=== PATIENT | male | born 1955 | race Caucasian/White ===

== ENCOUNTER 2019-10-01 21:38 | Inpatient (IN) | payer OTHER, MEDICARE ==
[2019-10-01 22:33] LABS: ALBUMIN 3.6 g/dL (3.5-5.0); ALKALINE PHOSPHATASE 125 U/L (38-126); ASPARTATE AMINO TRANSFERASE 73 U/L (17-59); BILIRUBIN,DIRECT 0.3 mg/dL (0.0-0.4); BLOOD UREA NITROGEN 28 mg/dL (7-20); CHLORIDE 66 mmol/L (98-107); TOTAL PROTEIN 5.9 g/dL (6.3-8.2)
--- NOTE | 2019-10-01 22:34 | ER Document Report ---
ED Respiratory Problem - General Chief Complaint: Shortness Of Breath Stated Complaint: SHORTNESS OF BREATH Time Seen by Provider: 10/01/19 22:21 Notes: Patient is a 64-year-old male that comes emergency department for chief complaint of worsening difficulty breathing for the past 2 days with shortness of breath, difficulty walking without becoming very short of breath, cough, and swelling of both lower extremities. His leg started to weep fluid today as well. Patient has a history of CHF, COPD, and he is on 3 L nasal cannula at all times. He states he has been compliant with his Lasix, he does continue to smoke. He also has a history of insulin-dependent diabetes. He denies history of MA or stent. He lives at home. TRAVEL OUTSIDE OF THE [place] IN LAST 30 DAYS: No - Related Data Allergies/Adverse Reactions: codeine [Codeine] Allergy (Verified 05/03/15 18:35) Penicillins Allergy (Verified 05/03/15 18:35) Sulfa (Sulfonamide Antibiotics) Allergy (Verified 05/03/15 18:35) Past Medical History - General Information source: Patient - Social History Smoking Status: Current Every Day Smoker Chew tobacco use (# tins/day): No Smoking Education Provided: Yes - <3 min Frequency of alcohol use: former heavy, now none Drug Abuse: None Lives with: Alone Family History: Reviewed & Not Pertinent - Past Medical History Cardiac Medical History: Reports: Hx Congestive Heart Failure, Hx Hypertension Pulmonary Medical History: Reports: Hx COPD Endocrine Medical History: Reports: Hx Diabetes Mellitus Type 2 Psychiatric Medical History: Reports: Hx Depression Past Surgical History: Reports: Hx Orthopedic Surgery - l knee - Immunizations Hx Diphtheria, Pertussis, Tetanus Vaccination: Yes Review of Systems - Review of Systems Constitutional: No symptoms reported EENT: No symptoms reported Cardiovascular: See HPI Respiratory: See HPI Gastrointestinal: No symptoms reported Genitourinary: No symptoms reported Male Genitourinary: No symptoms reported Musculoskeletal: No symptoms reported Skin: No symptoms reported Hematologic/Lymphatic: No symptoms reported Neurological/Psychological: No symptoms reported Physical Exam - Vital signs Vitals: Resp Pulse Ox 22 H 94 10/01/19 22:04 10/01/19 22:04 - Notes Notes: GENERAL: Alert, interacts well. No acute distress. HEAD: Normocephalic, atraumatic. EYES: Pupils equal, round, and reactive to light. Extraocular movements intact. ENT: Oral mucosa very dry, tongue midline. Oropharynx unremarkable. Airway patent. NECK: Full range of motion. Supple. Trachea midline. No lymphadenopathy. LUNGS: Occasional congested cough, Rales present in the lower lung khan especially on the right. Speaks in full sentences. No respiratory distress. HEART: Tachycardia, normal rhythm, no murmur. ABDOMEN: Abdomen soft and nontender but patient has a large ventral hernia below the umbilicus. EXTREMITIES: Moves all 4 extremities spontaneously. 3+ swelling of bilateral lower extremities with weeping fluid bilaterally. Normal distal pulses and sensation. BACK: no cervical, thoracic, lumbar midline tenderness. No saddle anesthesia, normal distal neurovascular exam. Moves all extremities in full range of motion. NEUROLOGICAL: Alert and oriented x3. Normal speech. Cranial nerves II through XII grossly intact. Strength 5/5 in all extremities. PSYCH: Normal affect, normal mood. SKIN: Warm, dry, normal turgor. No rashes or lesions noted. Course - Re-evaluation Re-evalutation: Patient is mildly tachycardic, has soft rales on exam especially on the right, has pitting edema with weeping lower extremity fluid. However he is not in distress, he is talking easily, has no obvious pain or discomfort. CBC shows leukocytosis with elevation of neutrophils but no bandemia. Chest x-r ay with cardiomegaly but no overt acute findings. Chemistry shows hypokalemia at 2.2, magnesium pending, starting on magnesium and potassium supplementation. Glucose is very elevated at approximately 600, anion gap is unremarkable. Troponin indeterminate. BNP in the 900s. Patient will require treatment of glucose and diuresis, however before this can be done patient needs to have potassium supplementation, this is ongoing. Patient also has U waves on EKG. I discussed with Dr. Howell. He does recommend magnesium, potassium supplementation, hospitalization. Discussed with patient. Patient states understanding and agreement. Discussed with Dr. Conner, hospitalist, patient accepted to telemetry full admission. - Vital Signs Vital signs: Temp Pulse Resp BP Pulse Ox 98.6 F 116 H 24 H 152/74 H 91 L 10/01/19 22:08 10/01/19 22:08 10/02/19 01:01 10/02/19 01:01 10/02/19 01:01 - Laboratory Result Diagrams: 10/01/19 22:05 10/01/19 22:05 Laboratory results interpreted by me: 10/01/19 10/01/19 10/01/19 22:05 22:05 22:05 WBC 13.6 H Plt Count 115 L Seg Neuts % (Manual) 93 H Lymphocytes % (Manual) 2 L Abs Neuts (Manual) 12.6 H Abs Lymphs (Manual) 0.3 L VBG pH VBG pCO2 VBG HCO3 Sodium 128.7 L Potassium 2.2 L* Chloride 66 L Carbon Dioxide 53 H* BUN 28 H Glucose 598 H* Calcium 8.0 L AST 73 H ALT 107 H NT-Pro-B Natriuret Pep 954 H Total Protein 5.9 L 10/01/19 23:45 WBC Plt Count Seg Neuts % (Manual) Lymphocytes % (Manual) Abs Neuts (Manual) Abs Lymphs (Manual) VBG pH 7.51 H VBG pCO2 74.4 H* VBG HCO3 58.4 H Sodium Potassium Chloride Carbon Dioxide BUN Glucose Calcium AST ALT NT-Pro-B Natriuret Pep Total Protein - EKG Interpretation by Me Additional EKG results interpreted by me: EKG shows sinus rhythm with occasional extra beats that appear to be PACs, QTC of 488, normal axis. There are U waves present anteriorly. No T wave inversions or ST segment changes in consecutive leads. Discharge - Discharge Clinical Impression: Dyspnea on exertion, Bilateral lower extremity edema, Hypokalemia, Hyperglycemia Condition: Stable Disposition: ADMITTED INPATIENT Admitting Provider: Dalila (Hospitalist) Unit Admitted: Telemetry
[2019-10-01 22:36] LABS: HEMATOCRIT 42.7 % (37.9-51.0); HEMOGLOBIN 14.1 g/dL (13.5-17.0); MEAN CORPUSCULAR HEMOGLOBIN 29.3 pg (27.0-33.4); MEAN CORPUSCULAR VOLUME 89 fl (80-97); PLATELET COUNT 115 10^3/uL (150-450); RED BLOOD COUNT 4.82 10^6/uL (4.35-5.55); RED CELL DISTRIBUTION WIDTH 13.9 % (11.5-14.0); WHITE BLOOD COUNT 13.6 10^3/uL (4.0-10.5)
--- NOTE | 2019-10-01 22:44 | RADIOLOGY REPORT (SQ) ---
AP Portable chest: 10/01/2019 9:42 PM CDT History: 64-year old patient with dyspnea. Comparison: Chest radiograph performed 05/03/2015. Findings: The cardiomediastinal silhouette is enlarged. No pneumothorax is seen. There may be a trace left effusion present. No acute airspace opacities are seen. The lung volumes are low. Impression: No acute airspace opacities are seen. The cardiomediastinal silhouette is enlarged.
[2019-10-01 22:58] LABS: ABSOLUTE LYMPHOCYTES# (MANUAL) 0.3 10^3/uL (0.5-4.7); ABSOLUTE MONOCYTES # (MANUAL) 0.5 10^3/uL (0.1-1.4); BASOPHILS % (MANUAL) 0 % (0-2); EOSINOPHILS % (MANUAL) 1 % (0-6); LYMPHOCYTES % (MANUAL) 2 % (13-45); MONOCYTES % (MANUAL) 4 % (3-13); SEGMENTED NEUTROPHILS % (MAN) 93 % (42-78); TOTAL CELLS COUNTED 100
[2019-10-01 23:00] LABS: OVALOCYTES SLIGHT; PLATELET COMMENT DECREASED; PLATELET LARGE PRESENT
[2019-10-01 23:08] LABS: ANION GAP 10 (5-19)
[2019-10-01 23:11] LABS: CARBON DIOXIDE 53 mmol/L (22-30); GLUCOSE 598 mg/dL (75-110); POTASSIUM 2.2 mmol/L (3.6-5.0)
[2019-10-01] MEDS ORDERED: NITROGLYCERIN 5 MG (0.2 MG/HR) PATCH.TD24 TD ONE (23:11)
[2019-10-01] MEDS: MAGNESIUM SULFATE/D5W 1 GM/100 ML RTUPB IV SCH (23:30)
[2019-10-01] MEDS: POTASSI CL 20 MEQ/50 ML RIDER 20 MEQ/50 ML RTUPB IV SCH (23:56)
[2019-10-02 00:03] LABS: VENOUS BLOOD BASE EXCESS 29.3 mmol/L; VENOUS BLOOD HCO3 58.4 mmol/L (20-32); VENOUS BLOOD PH 7.51 (7.30-7.42)
[2019-10-02 00:08] LABS: VENOUS BLOOD PCO2 74.4 mmHg (35-63)
[2019-10-02] MEDS ORDERED: POTASSIUM CHLORIDE 20 MEQ PACKET PO ONE (00:08)
[2019-10-02] MEDS: MAGNESIUM SULFATE/D5W 1 GM/100 ML RTUPB IV SCH (00:30)
[2019-10-02] MEDS: POTASSI CL 20 MEQ/50 ML RIDER 20 MEQ/50 ML RTUPB IV SCH ×5 (02:09→14:18)
[2019-10-02] MEDS ORDERED: LEVALBUTEROL HCL NEB 0.63 MG/3 ML AMPUL NEB PRN (02:54)
[2019-10-02] MEDS ORDERED: MAGNESIUM HYDROXIDE SUSP 30 ML UDCUP PO PRN (02:54)
[2019-10-02] MEDS ORDERED: MAG HYDROX/AL HYDROX/SIMETH SUSP 30 ML UDCUP PO PRN (02:54)
[2019-10-02] MEDS ORDERED: ONDANSETRON HCL INJ/PF 4 MG/2 ML SDV IV PRN (02:54)
[2019-10-02] MEDS ORDERED: SPIRONOLACTONE 25 MG TABLET PO ONE (03:08)
[2019-10-02] MEDS ORDERED: GLUCAGON,HUMAN RECOMB 1 MG INJ IM PRN (03:10)
[2019-10-02] MEDS ORDERED: DEXTROSE 40% GEL 15 GM TUBE PO PRN ×2 (03:10)
[2019-10-02] MEDS ORDERED: DEXTROSE 50%-WATER 25 GM/50 ML DISP.SYRIN IV PRN ×2 (03:10)
[2019-10-02] MEDS ORDERED: MORPHINE SULFATE 10 MG/ML INJ IV PRN (03:11)
[2019-10-02] MEDS ORDERED: GUAIFENESIN SYRP 200 MG/10 ML UDC PO PRN (03:11)
[2019-10-02] MEDS ORDERED: LORAZEPAM INJ 2 MG/1 ML VIAL IV PRN (03:11)
[2019-10-02] MEDS ORDERED: ACETAMINOPHEN 325 MG TABLET PO PRN (03:11)
[2019-10-02] MEDS ORDERED: HYDRALAZINE HCL INJ/PF 20 MG/1 ML SDV IV PRN (03:11)
[2019-10-02] MEDS ORDERED: NICOTINE 21 MG/24 HR PATCH.TD24 TD PRN (03:11)
[2019-10-02] MEDS: NITROGLYCERIN 2% OINTMENT 1 GM PACKET TP SCH ×4 (04:49→22:34)
[2019-10-02] MEDS: HEPARIN SOD (PORCINE) 5,000 UNIT/ML 1 ML VIAL SUBCUT SCH ×2 (05:33→14:18)
--- NOTE | 2019-10-02 06:24 | PDOC H&P ---
History of Present Illness Admission Date/PCP: 10/02/19 01:[facility] Patient complains of: Dyspnea on exertion History of Present Illness: ERIC DIAZ is a 64 year old male who presented to the emergency room with a one-week history of dyspnea on exertion. He admits a gradual onset and p rogressive development of dyspnea on exertion over the course of the last week, becoming severe for the last 2 days. His exertional dyspnea has been accompanied by increased swelling of his lower extremities and a nonproductive cough. His exertional dyspnea is associated with his inability to use continuous oxygen at home (3 L/min per nasal cannula) due to having exhausted the supply in his oxygen tank 2 days ago. He denies other associated or accompanying signs and symptoms. He admits prior similar episodes due to his CHF and COPD. He has not identified any aggravating or ameliorating factors for his exertional dyspnea. In the emergency room he was found to have a potassium of 2.2 and was noted to have weeping edema of his bilateral lower extremities. He was subsequently admitted to the hospital for further evaluation and treatment. Past Medical History Cardiac Medical History: Reports: Congestive Heart Failure, Hypertension Denies: Atrial Fibrillation, Coronary Artery Disease, DVT, Myocardial Infarction, Hyperlipidema, Pulmonary Embolism Pulmonary Medical History: Reports: Chronic Obstructive Pulmonary Disease (COPD), Respiratory Failure - Chronic, Sleep Apnea Denies: Asthma EENT Medical History: Denies: Cataracts, Ears - Hearing aids Neurological Medical History: Denies: Hemorrhagic CVA, Ischemic CVA, Seizures Endocrine Medical History: Reports: Diabetes Mellitus Type 2, Obesity Denies: Diabetes Mellitus Type 1, Hyperthyroidism, Hypothyroidism Renal/ Medical History: Reports: Chronic Kidney Disease Denies: Nephrolithiasis Malignancy Medical History: Reports: None GI Medical History: Denies: Cirrhosis, Crohn's Disease, Hepatitis, Peptic Ulcer Disease, Ulcerative Colitis Musculoskeltal Medical History: Denies: Arthritis, Gout Skin Medical History: Denies: Eczema, Psoriasis Psychiatric Medical History: Reports: Alcohol Dependency, Depression, Tobacco Dependency Denies: Substance Abuse Traumatic Medical History: Reports: None Hematology: Denies: Anemia, Bleeding Tendencies Infectious Medical History: Reports: None Past Surgical History Past Surgical History: Reports: Knee Replacement, Orthopedic Surgery - Left knee replacement Social History Information Source: Patient Lives with: Alone Smoking Status: Current Every Day Smoker Electronic Cigarette use?: No Frequency of Alcohol Use: None - He was a heavy daily drinker in the remote past Drugs: None Hx Prescription Drug Abuse: No - Advance Directive Resuscitation Status: Full Code Surrogate healthcare decision maker:: Kenyetta John Family History Family History: CAD, DM, Hypertension, Malignancy Parental Family History Reviewed: Yes Children Family History Reviewed: No Sibling(s) Family History Reviewed.: Yes Medication/Allergy Home Medications: Furosemide [Lasix] 20 mg PO DAILY 04/18/15 Metformin HCl [Glucophage 500 mg Tablet] 500 mg PO DAILY 04/18/15 Metoprolol Tartrate [Lopressor] 50 mg PO DAILY 04/18/15 Potassium Chloride 10 meq PO DAILY 04/18/15 Prednisone 60 mg PO DAILY 5 Days tablet 04/18/15 Albuterol Sulfate [Proair HFA Inhalation Aerosol 8.5 gm MDI] 1 puff IH Q4 PRN #1 mdi 05/04/15 Azithromycin [Zithromax 250 mg Tablet] 250 mg PO ASDIR PRN #6 tablet 05/04/15 Methylprednisolone [Medrol Dosepack (4 mg/Tab) 21 Tab/Dosepak] 4 mg PO ASDIR PRN #21 tab.ds.pk 05/04/15 Allergies/Adverse Reactions: codeine [Codeine] Allergy (Verified 05/03/15 18:35) Penicillins Allergy (Verified 05/03/15 18:35) Sulfa (Sulfonamide Antibiotics) Allergy (Verified 05/03/15 18:35) Review of Systems Constitutional: ABSENT: chills, fever(s) Eyes: ABSENT: visual disturbances, other - Eye pain Ears: ABSENT: hearing changes, other - Ear pain Nose, Mouth, and Throat: ABSENT: headache(s), sore throat Cardiovascular: PRESENT: as per HPI, dyspnea on exertion, edema. ABSENT: chest pain, orthropnea, palpitations Respiratory: PRESENT: as per HPI, cough. ABSENT: dyspnea, hemoptysis, sputum Gastrointestinal: ABSENT: abdominal pain, constipation, diarrhea, nausea, vomiting Musculoskeletal: ABSENT: joint swelling, muscle weakness Integumentary: ABSENT: pruritus, rash Neurological: ABSENT: confusion, convulsions, focal weakness, memory loss, syncope Psychiatric: ABSENT: anxiety, depression Endocrine: ABSENT: cold intolerance, heat intolerance Hematologic/Lymphatic: ABSENT: easy bleeding, easy bruising Allergic/Immunologic: ABSENT: seasonal rhinorrhea Physical Exam Vital Signs: Temp Pulse Resp BP Pulse Ox 98.6 F 116 H 24 H 152/74 H 91 L 10/01/19 22:08 10/01/19 22:08 10/02/19 01:01 10/02/19 01:01 10/02/19 01:01 Intake & Output 09/30/19 10/01/19 10/02/19 23:59 23:59 23:59 Intake Total 200 Balance 200 Weight 102.058 kg General appearance: PRESENT: no acute distress, cooperative, obese Head exam: PRESENT: atraumatic, normocephalic Eye exam: PRESENT: conjunctiva pink. ABSENT: conjunctival injection, scleral icterus Ear exam: PRESENT: normal external ear exam. ABSENT: bleeding, drainage Mouth exam: PRESENT: dry mucosa, neck supple Neck exam: ABSENT: JVD, thyromegaly, tracheal deviation Respiratory exam: PRESENT: prolonged expiratory phas - Mildly prolonged expi ratory phase throughout all khan, rales - Fine bibasilar rales, symmetrical, wheezes - Minimal expiratory wheezes noted in all khan Cardiovascular exam: PRESENT: gallop - Faint S4 gallop, RRR. ABSENT: clicks, rubs, systolic murmur Pulses: PRESENT: normal carotid pulses, normal radial pulses Vascular exam: PRESENT: normal capillary refill. ABSENT: pallor GI/Abdominal exam: PRESENT: normal bowel sounds, soft. ABSENT: tenderness Rectal exam: PRESENT: deferred Extremities exam: PRESENT: pedal edema - Bilateral pitting edema feet, other - 3+ pitting edema of the bilateral lower extremities with venous stasis skin changes and multiple "weeping" bullae Musculoskeletal exam: ABSENT: deformity, dislocation Neurological exam: PRESENT: alert, oriented to person, oriented to place, oriented to time, oriented to situation, CN II-XII grossly intact. ABSENT: motor sensory deficit Psychiatric exam: PRESENT: appropriate affect, normal mood Skin exam: PRESENT: dry, intact, warm, other - Venous stasis skin changes of the bilateral lower extremities with weeping bullae as noted above. ABSENT: jaundice, rash, urticaria Results Laboratory Results: 10/01/19 22:05 10/01/19 22:05 10/01/19 10/01/19 10/01/19 22:05 22:05 22:05 WBC 13.6 H RBC 4.82 Hgb 14.1 Hct 42.7 MCV 89 MCH 29.3 MCHC 33.0 RDW 13.9 Plt Count 115 L Seg Neutrophils % Not Reportable VBG pH VBG pCO2 VBG HCO3 VBG Base Excess Sodium 128.7 L Potassium 2.2 L* Chloride 66 L Carbon Dioxide 53 H* Anion Gap 10 BUN 28 H Creatinine 1.11 Est GFR ( Amer) > 60 Glucose 598 H* Calcium 8.0 L Magnesium 1.9 Total Bilirubin 1.0 AST 73 H Alkaline Phosphatase 125 Total Protein 5.9 L Albumin 3.6 10/01/19 23:45 WBC RBC Hgb Hct MCV MCH MCHC RDW Plt Count Seg Neutrophils % VBG pH 7.51 H VBG pCO2 74.4 H* VBG HCO3 58.4 H VBG Base Excess 29.3 Sodium Potassium Chloride Carbon Dioxide Anion Gap BUN Creatinine Est GFR ( Amer) Glucose Calcium Magnesium Total Bilirubin AST Alkaline Phosphatase Total Protein Albumin 10/01/19 10/01/19 22:05 22:05 Troponin I 0.043 NT-Pro-B Natriuret Pep 954 H Assessment and Plan - Diagnosis (1) Acute on chronic respiratory failure with hypoxia and hypercapnia Is this a current diagnosis for this admission?: Yes (2) Hypokalemia Is this a current diagnosis for this admission?: Yes (3) Acute on chronic congestive heart failure Qualifiers: Heart failure type: unspecified Qualified Code(s): I50.9 - Heart failure, unspecified Is this a current diagnosis for this admission?: Yes (4) Diabetes mellitus type 2 in obese Is this a current diagnosis for this admission?: Yes (5) Hypertension Qualifiers: Hypertension type: essential hypertension Qualified Code(s): I10 - Essential (primary) hypertension Is this a current diagnosis for this admission?: Yes (6) Tobacco use disorder, severe, dependence Is this a current diagnosis for this admission?: Yes - Plan Summary Summary: Patient will be admitted to the medical floor on telemetry he received routine supportive and symptomatic cares. Potassium supplementation was initiated in the emergency room and will be continued until his serum potassium has been repleted. Once his potassium level is greater than 3.0 treatment of his hyperglycemia will be initiated using sliding scale insulin and before meals and at bedtime Accu-Cheks with a hypoglycemic protocol also in place. Once his potassium is greater than 3.0 initiation of diuretic therapy with IV Bumex will be undertaken. He will use morphine sulfate 2 to 4 mg IV every 2 hours as ne eded for pain control. He will use Ativan 1 mg IV every 4 hours as needed for anxiety or restlessness. Smoking cessation is advised and counseled briefly at the bedside. A nicotine replacement patch is available for the patient's use, if desired. He will be on a cardiac and diabetic restricted diet. A cardiology consultation with Dr. Miguel will be obtained. The patient's usual home medications will be continued, as appropriate, once his medication list has been verified and reconciled. - Time Time Spent with patient: 15-24 minutes Smoking Cessation Education: 3 to 10 minutes Medications reviewed and adjusted accordingly: Yes Anticipated Discharge Disposition: Home with Home Health Anticipated Discharge Timeframe: within 72 hours - Inpatient Certification Based on my medical assessment, after consideration of the patient's comorbidities, presenting symptoms, or acuity I expect that the services needed warrant INPATIENT care.: Yes I certify that my determination is in accordance with my understanding of Medicare's requirements for reasonable and necessary INPATIENT services [42 CFR 412.3e].: Yes Medical Necessity: Significant Comorbidiites Make Outpatient Treatment Too Risky, Need Close Monitoring Due to Risk of Patient Decompensation, Need For Continuous Telemetry Monitoring, Risk of Complication if Not Cared For in Hospital
--- NOTE | 2019-10-02 06:39 | EKG REPORT ---
SEVERITY:- ABNORMAL ECG - SINUS TACHYCARDIA AND PAC NONSPECIFIC REPOL ABNORMALITY, DIFFUSE LEADS BORDERLINE PROLONGED QT INTERVAL : Confirmed by: Campbell Lopez MD 02-Oct-2019 06:39:00
[2019-10-02 06:42] LABS: HEMATOCRIT 37.4 % (37.9-51.0); HEMOGLOBIN 12.6 g/dL (13.5-17.0); MEAN CORPUSCULAR HEMOGLOBIN 29.4 pg (27.0-33.4); MEAN CORPUSCULAR HGB CONC 33.8 g/dL (32.0-36.0); MEAN CORPUSCULAR VOLUME 87 fl (80-97); RED CELL DISTRIBUTION WIDTH 13.8 % (11.5-14.0); WHITE BLOOD COUNT 8.2 10^3/uL (4.0-10.5)
[2019-10-02 07:11] LABS: BLOOD UREA NITROGEN 25 mg/dL (7-20); CALCIUM 7.5 mg/dL (8.4-10.2); CHLORIDE 72 mmol/L (98-107); CREATINE KINASE 132 U/L (55-170)
[2019-10-02 07:31] LABS: ANION GAP 9 (5-19)
[2019-10-02 07:34] LABS: CARBON DIOXIDE 51 mmol/L (22-30); GLUCOSE 477 mg/dL (75-110); POTASSIUM 2.3 mmol/L (3.6-5.0)
[2019-10-02 07:56] LABS: PLATELET COUNT 72 10^3/uL (150-450)
[2019-10-02] MEDS: LEVALBUTEROL HCL NEB 1.25 MG/3 ML AMPUL NEB SCH ×2 (09:06→15:33)
[2019-10-02] MEDS: BUDESONIDE NEB 0.5 MG/2 ML AMPUL NEB SCH ×2 (09:06→20:16)
[2019-10-02] MEDS: IPRATROPIUM BROMIDE 0.02% NEB 0.5 MG/2.5 ML AMPUL NEB SCH ×2 (09:06→15:33)
[2019-10-02] MEDS: CLOPIDOGREL BISULFATE 75 MG TABLET PO SCH (09:10)
[2019-10-02] MEDS: LOSARTAN POTASSIUM 50 MG TABLET PO SCH (09:10)
[2019-10-02] MEDS: FAMOTIDINE 20 MG TABLET PO SCH ×2 (09:10→22:34)
[2019-10-02] MEDS: METOPROLOL SUCCINATE 50 MG TAB.SR.24H PO SCH (09:10)
[2019-10-02] MEDS: POTASSIUM CHLORIDE 10 MEQ TABLET.ER PO SCH ×3 (09:10→17:18)
[2019-10-02] MEDS: INSULIN REG, HUMAN 100 UNIT/ML 3 ML VIAL (PYX) SUBCUT PRN ×4 (09:11→22:33)
[2019-10-02] MEDS: DOCUSATE SODIUM 100 MG CAPSULE PO SCH ×2 (09:24→17:18)
[2019-10-02] MEDS: POTASSIUM CHLORIDE 20 MEQ/50 ML RTU IV SCH ×2 (11:48→14:18)
[2019-10-02 12:13] LABS: TROPONIN I 0.044 ng/mL
[2019-10-02 13:13] LABS: CREATINE KINASE MB 1.71 ng/mL (<4.55)
[2019-10-02 14:01] LABS: CREATINE KINASE MB 1.57 ng/mL (<4.55); TROPONIN I 0.037 ng/mL
[2019-10-02] MEDS ORDERED: INSULIN GLARGINE,HUM.REC.ANLOG 1,000 UNIT/10 ML VIAL (PYX) SUBCUT ONE (14:15)
--- NOTE | 2019-10-02 14:15 | XCELERA REPORT ---
[address] [address] Transthoracic Echocardiogram Report Name: ERIC DIAZ Age: 64 yrs Gender: Male : 1955 Patient Status: Inpatient Patient Location: [address] [place], [place] [id number] Study Date: 10/02/2019 10:07 AM Height: 71 in Weight: 225 lb BSA: 2.2 m2 Procedure: A complete two-dimensional transthoracic echocardiogram was performed (2D, M-mode, spectral and color flow Doppler). The study was technically good with many images being of high quality. Reason For Study: Acute on chronic CHF Ordering Physician: DINO DOUGLASS Performed By: Taylor Villasenor Interpretation Summary The left ventricle is grossly normal size. There is mild concentric left ventricular hypertrophy. Left ventricular systolic function is normal. The Ejection Fraction estimate is 55-60%. Doppler measurements suggest impaired left ventricular relaxation, which is associated with grade I/IV or mild diastolic dysfunction. Regional wall motion abnormalities cannot be excluded due to limited visualization. Trace TR. No prior studies for comparison. MMode/2D Measurements & Calculations RVDd: 2.5 cm LVIDd: 4.6 cm FS: 29.6 % Ao root diam: 3.0 cm IVSd: 1.4 cm LVIDs: 3.2 cm EDV(Teich): 95.5 ml Ao root area: 7.3 cm2 LVPWd: 1.2 cm ESV(Teich): 41.4 ml EF(Teich): 56.7 % Doppler Measurements & Calculations MV E max mary: MV dec slope: Ao V2 max: LV V1 max P.8 cm/sec 390.7 cm/sec2 113.1 cm/sec 4.5 mmHg MV A max mary: MV dec time: 0.21 secAo max PG: LV V1 max: 108.7 cm/sec 5.1 mmHg 106.5 cm/sec MV E/A: 0.75 PA V2 max: 84.2 cm/sec PA max P.8 mmHg Left Ventricle The left ventricle is grossly normal size. There is mild concentric left ventricular hypertrophy. Left ventricular systolic function is normal. The Ejection Fraction estimate is 55-60%. Doppler measurements suggest impaired left ventricular relaxation, which is associated with grade I/IV or mild diastolic dysfunction. Regional wall motion abnormalities cannot be excluded due to limited visualization. Right Ventricle The right ventricle is normal in size, thickness and function. The right ventricular systolic function is normal. Atria The right atrium is normal. The left atrial size is normal. The interatrial septum is difficult to see, but appears to be grossly normal. Mitral Valve The mitral valve is normal in structure and function. There is no mitral regurgitation noted. Aortic Valve The aortic valve is normal in structure and functions normally. No aortic regurgitation is present. Tricuspid Valve The tricuspid is normal in structure and function. There is a trace or physiologic amount of tricuspid regurgitation. Pulmonic Valve The pulmonic valve is normal in structure and function. There is no pulmonic valvular regurgitation. Great Vessels The inferior vena cava was not well visualized. : DINO DOUGLASS Antonio
--- NOTE | 2019-10-02 14:28 | PDOC CONSULTATION ---
Consultation Consult Date: 10/02/19 Attending physician:: MAXX MONSON Provider Consulted: TIFFANY DARBY Consult reason:: Congestive heart failure History of Present Illness Admission Date/PCP: 10/02/19 01:[facility] Patient complains of: Shortness of breath and edema History of Present Illness: ERIC DIAZ is a 64 year old male Who is not a great historian. He presents with dyspnea and peripheral edema with symptoms suggestive of congestive heart failure. He reports having had similar episodes in the past. Echocardiogram done on this admission shows preserved ejection fraction suggesting a diagnosis of heart failure with preserved ejection fraction. No mention of coronary artery disease. Patient does not report chest pains. Past Medical History Cardiac Medical History: Reports: Congestive Heart Failure, Hypertension Denies: Atrial Fibrillation, Coronary Artery Disease, DVT, Myocardial Infarction, Hyperlipidema, Pulmonary Embolism Pulmonary Medical History: Reports: Chronic Obstructive Pulmonary Disease (COPD), Respiratory Failure - Chronic, Sleep Apnea Denies: Asthma EENT Medical History: Denies: Cataracts, Ears - Hearing aids Neurological Medical History: Denies: Hemorrhagic CVA, Ischemic CVA, Seizures Endocrine Medical History: Reports: Diabetes Mellitus Type 2, Obesity Denies: Diabetes Mellitus Type 1, Hyperthyroidism, Hypothyroidism Renal/ Medical History: Reports: Chronic Kidney Disease Denies: Nephrolithiasis Malignancy Medical History: Reports: None GI Medical History: Denies: Cirrhosis, Crohn's Disease, Hepatitis, Peptic Ulcer Disease, Ulcerative Colitis Musculoskeltal Medical History: Denies: Arthritis, Gout Skin Medical History: Denies: Eczema, Psoriasis Psychiatric Medical History: Reports: Alcohol Dependency, Depression, Tobacco Dependency Denies: Substance Abuse Traumatic Medical History: Reports: None Hematology: Denies: Anemia, Bleeding Tendencies Infectious Medical History: Reports: None Past Surgical History Past Surgical History: Reports: Knee Replacement, Orthopedic Surgery - Left knee replacement Social History Lives with: Alone Smoking Status: Current Every Day Smoker Electronic Cigarette use?: No Frequency of Alcohol Use: None - He was a heavy daily drinker in the remote past Drugs: None Hx Prescription Drug Abuse: No - Advance Directive Resuscitation Status: Full Code Family History Family History: CAD, DM, Hypertension, Malignancy Parental Family History Reviewed: No Children Family History Reviewed: NA Sibling(s) Family History Reviewed.: NA Medication/Allergy Home Medications: Furosemide [Lasix] 20 mg PO DAILY 04/18/15 Metformin HCl [Glucophage 500 mg Tablet] 500 mg PO DAILY 04/18/15 Metoprolol Tartrate [Lopressor] 50 mg PO DAILY 04/18/15 Potassium Chloride 10 meq PO DAILY 04/18/15 Prednisone 60 mg PO DAILY 5 Days tablet 04/18/15 Albuterol Sulfate [Proair HFA Inhalation Aerosol 8.5 gm MDI] 1 puff IH Q4 PRN #1 mdi 05/04/15 Azithromycin [Zithromax 250 mg Tablet] 250 mg PO ASDIR PRN #6 tablet 05/04/15 Methylprednisolone [Medrol Dosepack (4 mg/Tab) 21 Tab/Dosepak] 4 mg PO ASDIR PRN #21 tab.ds.pk 05/04/15 Allergies/Adverse Reactions: codeine [Codeine] Allergy (Verified 05/03/15 18:35) Penicillins Allergy (Verified 05/03/15 18:35) Sulfa (Sulfonamide Antibiotics) Allergy (Verified 05/03/15 18:35) Review of Systems Cardiovascular: PRESENT: as per HPI, dyspnea on exertion, edema Physical Exam Vital Signs: Temp Pulse Resp BP Pulse Ox 97.6 F 85 20 143/74 H 93 10/02/19 08:44 10/02/19 09:05 10/02/19 09:05 10/02/19 08:44 10/02/19 09:05 Intake & Output 10/01/19 10/02/19 10/03/19 06:59 06:59 06:59 Intake Total 560 150 Balance 560 150 Weight 102.1 kg General appearance: PRESENT: no acute distress, cooperative, obese, well- developed, well-nourished Head exam: PRESENT: atraumatic, normocephalic Eye exam: PRESENT: conjunctiva pink, EOMI Mouth exam: PRESENT: moist Respiratory exam: PRESENT: crackles, decreased breath sounds, rales, symmetrical, unlabored Cardiovascular exam: PRESENT: RRR, +S1, +S2 Pulses: PRESENT: normal radial pulses GI/Abdominal exam: PRESENT: soft Rectal exam: PRESENT: deferred Neurological exam: PRESENT: alert, oriented to person, oriented to place, oriented to time, oriented to situation Psychiatric exam: PRESENT: appropriate affect Skin exam: PRESENT: dry, intact Results Laboratory Results: 10/02/19 05:30 10/02/19 05:30 10/01/19 10/01/19 10/01/19 22:05 22:05 22:05 WBC 13.6 H RBC 4.82 Hgb 14.1 Hct 42.7 MCV 89 MCH 29.3 MCHC 33.0 RDW 13.9 Plt Count 115 L Seg Neutrophils % Not Reportable VBG pH VBG pCO2 VBG HCO3 VBG Base Excess Sodium 128.7 L Potassium 2.2 L* Chloride 66 L Carbon Dioxide 53 H* Anion Gap 10 BUN 28 H Creatinine 1.11 Est GFR ( Amer) > 60 Glucose 598 H* Calcium 8.0 L Magnesium 1.9 Total Bilirubin 1.0 AST 73 H Alkaline Phosphatase 125 Total Protein 5.9 L Albumin 3.6 TSH 10/01/19 10/02/19 10/02/19 23:45 05:30 05:30 WBC 8.2 RBC 4.30 L Hgb 12.6 L Hct 37.4 L MCV 87 MCH 29.4 MCHC 33.8 RDW 13.8 Plt Count 72 L Seg Neutrophils % VBG pH 7.51 H VBG pCO2 74.4 H* VBG HCO3 58.4 H VBG Base Excess 29.3 Sodium 132.0 L Potassium 2.3 L* Chloride 72 L Carbon Dioxide 51 H* Anion Gap 9 BUN 25 H Creatinine 0.88 Est GFR ( Amer) > 60 Glucose 477 H* Calcium 7.5 L Magnesium 2.4 H Total Bilirubin AST Alkaline Phosphatase Total Protein Albumin TSH 10/02/19 05:30 WBC RBC Hgb Hct MCV MCH MCHC RDW Plt Count Seg Neutrophils % VBG pH VBG pCO2 VBG HCO3 VBG Base Excess Sodium Potassium Chloride Carbon Dioxide Anion Gap BUN Creatinine Est GFR ( Amer) Glucose Calcium Magnesium Total Bilirubin AST Alkaline Phosphatase Total Protein Albumin TSH 0.06 L 10/01/19 10/01/19 10/02/19 22:05 22:05 05:30 Creatine Kinase 132 CK-MB (CK-2) Troponin I 0.043 NT-Pro-B Natriuret Pep 954 H 10/02/19 10/02/19 10/02/19 09:58 12:07 12:07 Creatine Kinase 99 CK-MB (CK-2) 1.71 1.57 Troponin I 0.044 0.037 NT-Pro-B Natriuret Pep EKG Comments: Transthoracic echocardiogram 10/02/2019 Left ventricular ejection fraction 55 to 60% Mild diastolic dysfunction Trace tricuspid regurgitation No mitral regurgitation Twelve-lead EKG 10/01/2019. Independently reviewed by me. Sinus tachycardia 101 bpm, poor baseline, nonspecific repolarization abnormality, normal AV conduction Assessment & Plan - Diagnosis (1) Acute on chronic congestive heart failure Qualifiers: Heart failure type: unspecified Qualified Code(s): I50.9 - Heart failure, unspecified Is this a current diagnosis for this admission?: Yes Plan: Heart failure with preserved ejection fraction Likely diastolic dysfunction Dyspnea is likely multifactorial on account of congestive heart failure as well as worsening COPD. Watch fluid status closely Limit free water intake to less than 1.5 L/day No added salt in the diet Intravenous diuresis Correction of hypokalemia (2) Hypertension Qualifiers: Hypertension type: essential hypertension Qualified Code(s): I10 - Essential (primary) hypertension Is this a current diagnosis for this admission?: Yes (3) Hypokalemia Is this a current diagnosis for this admission?: Yes Plan: Correction of hypokalemia. Potassium profoundly low at 2.3 mEq/L Magnesium is at 2.4 g/dL. We will have to correct hypokalemia.
[2019-10-02] MEDS ORDERED: FUROSEMIDE INJ/PF 20 MG/2 ML SDV IV ONE (16:25)
--- NOTE | 2019-10-02 16:28 | PDOC PROGRESS REPORT ---
Subjective Progress Note for:: 10/02/19 Subjective:: Patient is sitting on the edge of the bed completing a nebulizer treatment. He is unkempt but appears comfortable. Marked pedal edema noted. Reason For Visit: ACUTE ON CHRONIC CONGESTIVE HEART FAILURE,ACUTE ON Physical Exam Vital Signs: Temp Pulse Resp BP Pulse Ox 97.6 F 75 18 131/57 H 94 10/02/19 12:34 10/02/19 15:33 10/02/19 15:33 10/02/19 12:34 10/02/19 15:33 Intake & Output 10/01/19 10/02/19 10/03/19 06:59 06:59 06:59 Intake Total 560 730 Output Total 1325 Balance 560 -595 Weight 102.1 kg General appearance: PRESENT: no acute distress, cooperative, disheveled, well- developed Head exam: PRESENT: atraumatic, normocephalic Mouth exam: PRESENT: moist, tongue midline Respiratory exam: PRESENT: decreased breath sounds - At bases, rales - Faint, symmetrical, unlabored. ABSENT: rhonchi, tachypnea, wheezes Cardiovascular exam: PRESENT: RRR, +S1, +S2. ABSENT: bradycardia, diastolic murmur, irregular rhythm, systolic murmur, tachycardia GI/Abdominal exam: PRESENT: normal bowel sounds, soft. ABSENT: distended, tenderness Rectal exam: PRESENT: deferred Gentrourinary exam: ABSENT: indwelling catheter Extremities exam: PRESENT: pedal edema - 2+ to 3+, +2 edema Musculoskeletal exam: PRESENT: ambulatory, normal inspection - Except for edema. ABSENT: deformity, dislocation Neurological exam: PRESENT: alert, awake, oriented to person, oriented to place, oriented to time, oriented to situation, CN II-XII grossly intact. ABSENT: altered, motor sensory deficit Psychiatric exam: PRESENT: appropriate affect. ABSENT: agitated, anxious Focused psych exam: ABSENT: delusional, paranoid, restlessness Skin exam: PRESENT: dry, warm. ABSENT: rash Results Laboratory Results: 10/02/19 05:30 10/02/19 05:30 10/01/19 10/01/19 10/01/19 22:05 22:05 22:05 WBC 13.6 H RBC 4.82 Hgb 14.1 Hct 42.7 MCV 89 MCH 29.3 MCHC 33.0 RDW 13.9 Plt Count 115 L Seg Neutrophils % Not Reportable VBG pH VBG pCO2 VBG HCO3 VBG Base Excess Sodium 128.7 L Potassium 2.2 L* Chloride 66 L Carbon Dioxide 53 H* Anion Gap 10 BUN 28 H Creatinine 1.11 Est GFR ( Amer) > 60 Glucose 598 H* Calcium 8.0 L Magnesium 1.9 Total Bilirubin 1.0 AST 73 H Alkaline Phosphatase 125 Total Protein 5.9 L Albumin 3.6 TSH 10/01/19 10/02/19 10/02/19 23:45 05:30 05:30 WBC 8.2 RBC 4.30 L Hgb 12.6 L Hct 37.4 L MCV 87 MCH 29.4 MCHC 33.8 RDW 13.8 Plt Count 72 L Seg Neutrophils % VBG pH 7.51 H VBG pCO2 74.4 H* VBG HCO3 58.4 H VBG Base Excess 29.3 Sodium 132.0 L Potassium 2.3 L* Chloride 72 L Carbon Dioxide 51 H* Anion Gap 9 BUN 25 H Creatinine 0.88 Est GFR ( Amer) > 60 Glucose 477 H* Calcium 7.5 L Magnesium 2.4 H Total Bilirubin AST Alkaline Phosphatase Total Protein Albumin TSH 10/02/19 05:30 WBC RBC Hgb Hct MCV MCH MCHC RDW Plt Count Seg Neutrophils % VBG pH VBG pCO2 VBG HCO3 VBG Base Excess Sodium Potassium Chloride Carbon Dioxide Anion Gap BUN Creatinine Est GFR ( Amer) Glucose Calcium Magnesium Total Bilirubin AST Alkaline Phosphatase Total Protein Albumin TSH 0.06 L 10/01/19 10/01/19 10/02/19 22:05 22:05 05:30 Creatine Kinase 132 CK-MB (CK-2) Troponin I 0.043 NT-Pro-B Natriuret Pep 954 H 10/02/19 10/02/19 10/02/19 09:58 12:07 12:07 Creatine Kinase 99 CK-MB (CK-2) 1.71 1.57 Troponin I 0.044 0.037 NT-Pro-B Natriuret Pep Assessment and Plan - Diagnosis (1) Acute on chronic respiratory failure with hypoxia and hypercapnia Is this a current diagnosis for this admission?: Yes Plan: COVID testing pending. Chest x-ray did not obvious for infiltrates. May need to consider CT scan of the chest. The patient does have underlying COPD and a history of heart failure. Continue oxygen supplementation. (2) Acute on chronic congestive heart failure Qualifiers: Heart failure type: diastolic Qualified Code(s): I50.33 - Acute on chronic diastolic (congestive) heart failure Is this a current diagnosis for this admission?: Yes Plan: Echocardiogram reveals normal ejection fraction. No significant valvular disease. There is 1/4 diastolic heart failure. There may be some right-sided failure secondary to COPD as well. Increase furosemide dosing. Monitor intake and output as well as electrolytes. (3) Hyperglycemia due to diabetes mellitus Is this a current diagnosis for this admission?: Yes Plan: Patient is on oral medications at home. He has been on steroids lately by review of the medication list. He will be on Accu-Cheks and sliding scale. I have added Lantus in addition. (4) Hypokalemia Is this a current diagnosis for this admission?: Yes Plan: Supplement potassium. Monitor closely during aggressive diuresis. (5) COPD exacerbation Is this a current diagnosis for this admission?: Yes Plan: Continue nebulizers and oxygen supplementation. No antibiotics at this time. (6) Hypertension Qualifiers: Hypertension type: essential hypertension Qualified Code(s): I10 - Essential (primary) hypertension Is this a current diagnosis for this admission?: Yes Plan: Monitor blood pressures with increased diuresis. Will likely need adjustments in home medication regimen based on echocardiogram and response to diuretics. (7) Tobacco use disorder, severe, dependence Is this a current diagnosis for this admission?: Yes Plan: Nicotine patch. - Plan Summary Summary: Patient will be admitted to the medical floor on telemetry he received routine supportive and symptomatic cares. Potassium supplementation was initiated in the emergency room and will be continued until his serum potassium has been repleted. Once his potassium level is greater than 3.0 treatment of his hyperglycemia will be initiated using sliding scale insulin and before meals and at bedtime Accu-Cheks with a hypoglycemic protocol also in place. Once his potassium is greater than 3.0 initiation of diuretic therapy with IV Bumex will be undertaken. He will use morphine sulfate 2 to 4 mg IV every 2 hours as needed for pain control. He will use Ativan 1 mg IV every 4 hours as needed for anxiety or restlessness. Smoking cessation is advised and counseled briefly at the bedside. A nicotine replacement patch is available for the patient's use, if desired. He will be on a cardiac and diabetic restricted diet. A cardiology consultation with Dr. Miguel will be obtained. The patient's usual home medications will be continued, as appropriate, once his medication list has been verified and reconciled. - Time Time Spent with patient: 15-24 minutes Smoking Cessation Education: 3 to 10 minutes Medications reviewed and adjusted accordingly: Yes Anticipated Discharge Disposition: Home with Home Health Anticipated Discharge Timeframe: 4 to 5 days
[2019-10-02 19:51] LABS: CREATINE KINASE MB 2.19 ng/mL (<4.55); TROPONIN I 0.033 ng/mL
[2019-10-02] MEDS ORDERED: INSULIN GLARGINE,HUM.REC.ANLOG 1,000 UNIT/10 ML VIAL SUBCUT SCH (22:00)
[2019-10-02] MEDS: INSULIN GLARGINE,HUM.REC.ANLOG 1,000 UNIT/10 ML VIAL SUBCUT SCH (22:32)
[2019-10-02 23:12] LABS: BLOOD UREA NITROGEN 31 mg/dL (7-20); GLUCOSE 356 mg/dL (75-110)
[2019-10-02 23:27] LABS: CHLORIDE 78 mmol/L (98-107)
[2019-10-02 23:32] LABS: ANION GAP 13 (5-19); POTASSIUM 3.3 mmol/L (3.6-5.0)
[2019-10-02 23:34] LABS: CARBON DIOXIDE 54 mmol/L (22-30)
[2019-10-03] MEDS: LEVALBUTEROL HCL NEB 1.25 MG/3 ML AMPUL NEB SCH ×3 (00:05→18:49)
[2019-10-03] MEDS: IPRATROPIUM BROMIDE 0.02% NEB 0.5 MG/2.5 ML AMPUL NEB SCH ×3 (00:05→18:48)
[2019-10-03] MEDS: HEPARIN SOD (PORCINE) 5,000 UNIT/ML 1 ML VIAL SUBCUT SCH ×4 (01:43→21:24)
[2019-10-03] MEDS: NITROGLYCERIN 2% OINTMENT 1 GM PACKET TP SCH ×2 (02:23→11:03)
[2019-10-03 06:19] LABS: HEMOGLOBIN 12.7 g/dL (13.5-17.0); MEAN CORPUSCULAR HEMOGLOBIN 29.3 pg (27.0-33.4); MEAN CORPUSCULAR HGB CONC 33.6 g/dL (32.0-36.0); MEAN CORPUSCULAR VOLUME 87 fl (80-97); RED BLOOD COUNT 4.35 10^6/uL (4.35-5.55); RED CELL DISTRIBUTION WIDTH 13.8 % (11.5-14.0); WHITE BLOOD COUNT 8.6 10^3/uL (4.0-10.5)
[2019-10-03 06:30] LABS: BLOOD UREA NITROGEN 32 mg/dL (7-20); CALCIUM 8.2 mg/dL (8.4-10.2); CHLORIDE 79 mmol/L (98-107); GLUCOSE 305 mg/dL (75-110)
[2019-10-03 06:53] LABS: PLATELET COUNT 71 10^3/uL (150-450)
[2019-10-03 07:08] LABS: POTASSIUM 4.3 mmol/L (3.6-5.0)
[2019-10-03 07:23] LABS: CARBON DIOXIDE 53 mmol/L (22-30)
[2019-10-03 07:25] LABS: ANION GAP 2 (5-19)
[2019-10-03] MEDS ORDERED: FUROSEMIDE INJ/PF 40 MG/4 ML SDV IV SCH (10:00)
[2019-10-03] MEDS: BUDESONIDE NEB 0.5 MG/2 ML AMPUL NEB SCH ×2 (10:00→21:29)
[2019-10-03] MEDS: DOCUSATE SODIUM 100 MG CAPSULE PO SCH ×2 (10:52→17:20)
[2019-10-03] MEDS: POTASSIUM CHLORIDE 10 MEQ TABLET.ER PO SCH ×3 (11:03→17:24)
[2019-10-03] MEDS: LOSARTAN POTASSIUM 50 MG TABLET PO SCH (11:03)
[2019-10-03] MEDS: CLOPIDOGREL BISULFATE 75 MG TABLET PO SCH (11:03)
[2019-10-03] MEDS: METOPROLOL SUCCINATE 50 MG TAB.SR.24H PO SCH (11:03)
[2019-10-03] MEDS: FAMOTIDINE 20 MG TABLET PO SCH ×2 (11:03→21:33)
[2019-10-03] MEDS: INSULIN GLARGINE,HUM.REC.ANLOG 1,000 UNIT/10 ML VIAL SUBCUT SCH ×2 (11:04→23:00)
[2019-10-03] MEDS: INSULIN REG, HUMAN 100 UNIT/ML 3 ML VIAL (PYX) SUBCUT PRN ×3 (11:04→17:24)
--- NOTE | 2019-10-03 17:06 | PDOC PROGRESS REPORT ---
Subjective Progress Note for:: 10/03/19 Subjective:: Patient was seen on afternoon rounds. He was found resting in bed, comfortably, on supplemental oxygen at 4 L/min. He reports that he is home O2 dependent. He was sleeping but woke easily when I said his name. He states that his breathing is much improved. He does continue to have mild dyspnea with exertion and peripheral edema increased from his baseline. Otherwise, he is feeling quite well and is hopeful to be ready to discharge home tomorrow. He denies fever, chills, chest pain, palpitations, orthopnea, abdominal pain, nausea vomiting and diarrhea. Has no questions or concerns at this time. Nursing reports hyperglycemia today, however, Accu-Chek was taken after he received his breakfast. No other concerns. Reason For Visit: ACUTE ON CHRONIC CONGESTIVE HEART FAILURE,ACUTE ON Physical Exam Vital Signs: Temp Pulse Resp BP Pulse Ox 97.6 F 78 16 132/77 H 100 10/03/19 12:20 10/03/19 14:00 10/03/19 12:20 10/03/19 12:20 10/03/19 12:20 Intake & Output 10/02/19 10/03/19 10/04/19 06:59 06:59 06:59 Intake Total 560 1380 Output Total 2225 Balance 560 -845 Weight 102.1 kg 118 kg General appearance: PRESENT: no acute distress, cooperative, disheveled, obese, well-developed, well-nourished Head exam: PRESENT: atraumatic, normocephalic Eye exam: PRESENT: conjunctiva pink, EOMI, PERRLA. ABSENT: scleral icterus Mouth exam: PRESENT: moist, tongue midline Respiratory exam: PRESENT: clear to auscultation tera, symmetrical, unlabored. ABSENT: rales, rhonchi, wheezes Cardiovascular exam: PRESENT: RRR, +S1, +S2. ABSENT: diastolic murmur, rubs, systolic murmur Pulses: PRESENT: normal dorsalis pedis pul Vascular exam: PRESENT: normal capillary refill Extremities exam: PRESENT: full ROM, +2 edema - BLE. ABSENT: calf tenderness, clubbing Neurological exam: PRESENT: alert, awake, oriented to person, oriented to place, oriented to time, oriented to situation, CN II-XII grossly intact. ABSENT: motor sensory deficit Psychiatric exam: PRESENT: appropriate affect, normal mood. ABSENT: homicidal ideation, suicidal ideation Skin exam: PRESENT: dry, intact, warm. ABSENT: cyanosis, rash Results Laboratory Results: 10/03/19 05:39 10/03/19 05:39 10/02/19 10/03/19 10/03/19 22:37 05:39 05:39 WBC 8.6 RBC 4.35 Hgb 12.7 L Hct 38.0 MCV 87 MCH 29.3 MCHC 33.6 RDW 13.8 Plt Count 71 L Sodium 145.0 134.3 L Potassium 3.3 L D 4.3 D Chloride 78 L 79 L Carbon Dioxide 54 H* 53 H* Anion Gap 13 2 L BUN 31 H 32 H Creatinine 1.14 0.90 Est GFR ( Amer) > 60 > 60 Glucose 356 H 305 H Calcium 8.0 L 8.2 L Magnesium 2.4 H 10/01/19 10/01/19 10/02/19 22:05 22:05 05:30 Creatine Kinase 132 CK-MB (CK-2) Troponin I 0.043 NT-Pro-B Natriuret Pep 954 H 10/02/19 10/02/19 10/02/19 09:58 12:07 12:07 Creatine Kinase 99 CK-MB (CK-2) 1.71 1.57 Troponin I 0.044 0.037 NT-Pro-B Natriuret Pep 10/02/19 10/02/19 18:33 18:33 Creatine Kinase 131 CK-MB (CK-2) 2.19 Troponin I 0.033 NT-Pro-B Natriuret Pep Assessment and Plan - Diagnosis (1) Acute on chronic congestive heart failure Qualifiers: Heart failure type: diastolic Qualified Code(s): I50.33 - Acute on chronic diastolic (congestive) heart failure Is this a current diagnosis for this admission?: Yes Plan: Echocardiogram reveals normal ejection fraction. No significant valvular disease. There is 1/4 diastolic heart failure. There may be some right-sided failure secondary to COPD as well. Cardiology has been consulted. Continue metoprolol, losartan, spironolactone. Continue to diurese with IV furosemide. Daily statin and Plavix therapy. Cardiac diet. Fluid restricted 1.5 L daily. Daily weights, strict I&O's. Registered dietitian and patient educator consulted. (2) COPD exacerbation Is this a current diagnosis for this admission?: Yes Plan: Continue nebulizers and oxygen supplementation. No antibiotics or steroids at this time. (3) Acute on chronic respiratory failure with hypoxia and hypercapnia Is this a current diagnosis for this admission?: Yes Plan: COVID testing negative. Secondary to #1 & 2 Management as above. (4) Hyperglycemia due to diabetes mellitus Is this a current diagnosis for this admission?: Yes Plan: A1c 9.8%. Resume home medication regiment Patient is placed on a consistent carb diet. Accu-Cheks before meals and at bedtime with Humalog for sliding scale coverage. Hypoglycemia protocol in place. Registered dietitian simulation educator consulted. (5) Hypokalemia Is this a current diagnosis for this admission?: Yes Plan: Replete. Follow-up chemistry. (6) Tobacco use disorder, severe, dependence Is this a current diagnosis for this admission?: Yes Plan: Nicotine patch. - Time Medications reviewed and adjusted accordingly: Yes Anticipated Discharge Disposition: Home, Self Care Anticipated Discharge Timeframe: within 24 hours
[2019-10-03] MEDS: GLIPIZIDE 10 MG TABLET PO SCH (17:24)
[2019-10-03] MEDS: FUROSEMIDE INJ/PF 40 MG/4 ML SDV IV SCH (17:24)
--- NOTE | 2019-10-03 18:52 | PDOC PROGRESS REPORT ---
Subjective Progress Note for:: 10/03/19 Subjective:: Patient seen and examined. He reports improvement in symptoms. He no longer reports dyspnea. He is waiting to take his pulse and waiting on his supper. Reason For Visit: ACUTE ON CHRONIC CONGESTIVE HEART FAILURE,ACUTE ON Physical Exam Vital Signs: Temp Pulse Resp BP Pulse Ox 97.6 F 78 16 132/77 H 100 10/03/19 12:20 10/03/19 14:00 10/03/19 12:20 10/03/19 12:20 10/03/19 12:20 Intake & Output 10/02/19 10/03/19 10/04/19 06:59 06:59 06:59 Intake Total 560 1380 Output Total 2225 Balance 560 -845 Weight 102.1 kg 118 kg General appearance: PRESENT: no acute distress, cooperative, obese, well-develop ed, well-nourished Head exam: PRESENT: atraumatic, normocephalic Eye exam: PRESENT: conjunctiva pink Mouth exam: PRESENT: moist Respiratory exam: PRESENT: crackles, decreased breath sounds, symmetrical, unlabored Cardiovascular exam: PRESENT: RRR, +S1, +S2 Pulses: PRESENT: normal radial pulses GI/Abdominal exam: PRESENT: distended, soft Rectal exam: PRESENT: deferred Neurological exam: PRESENT: alert, awake, oriented to person, oriented to place, oriented to time, oriented to situation Psychiatric exam: PRESENT: appropriate affect Skin exam: PRESENT: dry, intact Results Laboratory Results: 10/03/19 05:39 10/03/19 05:39 10/02/19 10/03/19 10/03/19 22:37 05:39 05:39 WBC 8.6 RBC 4.35 Hgb 12.7 L Hct 38.0 MCV 87 MCH 29.3 MCHC 33.6 RDW 13.8 Plt Count 71 L Sodium 145.0 134.3 L Potassium 3.3 L D 4.3 D Chloride 78 L 79 L Carbon Dioxide 54 H* 53 H* Anion Gap 13 2 L BUN 31 H 32 H Creatinine 1.14 0.90 Est GFR ( Amer) > 60 > 60 Glucose 356 H 305 H Calcium 8.0 L 8.2 L Magnesium 2.4 H 10/01/19 10/01/19 10/02/19 22:05 22:05 05:30 Creatine Kinase 132 CK-MB (CK-2) Troponin I 0.043 NT-Pro-B Natriuret Pep 954 H 10/02/19 10/02/19 10/02/19 09:58 12:07 12:07 Creatine Kinase 99 CK-MB (CK-2) 1.71 1.57 Troponin I 0.044 0.037 NT-Pro-B Natriuret Pep 10/02/19 10/02/19 18:33 18:33 Creatine Kinase 131 CK-MB (CK-2) 2.19 Troponin I 0.033 NT-Pro-B Natriuret Pep Assessment & Plan - Diagnosis (1) Acute on chronic congestive heart failure Qualifiers: Heart failure type: diastolic Qualified Code(s): I50.33 - Acute on chronic diastolic (congestive) heart failure Is this a current diagnosis for this admission?: Yes Plan: Acute decompensated congestive heart failure Probably chronic diastolic heart failure with acute exacerbation Seems to be improving with diuretic therapy. Continue to watch fluid intake No added salt in the diet. (2) Hypertension Qualifiers: Hypertension type: essential hypertension Qualified Code(s): I10 - Essential (primary) hypertension Is this a current diagnosis for this admission?: Yes Plan: Continue metoprolol succinate 100 mg daily (3) Hypokalemia Is this a current diagnosis for this admission?: Yes Plan: Hypokalemia has been corrected
[2019-10-03] MEDS: ATORVASTATIN CALCIUM 20 MG TABLET PO SCH (21:32)
[2019-10-03] MEDS: METFORMIN HCL 500 MG TABLET PO SCH (21:32)
[2019-10-03] MEDS: GABAPENTIN 300 MG CAPSULE PO SCH (21:33)
[2019-10-03] MEDS ORDERED: INSULIN GLARGINE,HUM.REC.ANLOG 1,000 UNIT/10 ML VIAL (PYX) SUBCUT ONE (21:57)
[2019-10-04] MEDS: LEVALBUTEROL HCL NEB 1.25 MG/3 ML AMPUL NEB SCH ×4 (00:20→23:54)
[2019-10-04] MEDS: IPRATROPIUM BROMIDE 0.02% NEB 0.5 MG/2.5 ML AMPUL NEB SCH ×4 (00:20→23:54)
[2019-10-04] MEDS: HEPARIN SOD (PORCINE) 5,000 UNIT/ML 1 ML VIAL SUBCUT SCH ×3 (05:08→21:34)
[2019-10-04] MEDS: GABAPENTIN 300 MG CAPSULE PO SCH ×3 (05:21→22:01)
[2019-10-04 06:37] LABS: HEMATOCRIT 36.4 % (37.9-51.0); HEMOGLOBIN 12.2 g/dL (13.5-17.0); MEAN CORPUSCULAR HEMOGLOBIN 29.5 pg (27.0-33.4); MEAN CORPUSCULAR HGB CONC 33.5 g/dL (32.0-36.0); MEAN CORPUSCULAR VOLUME 88 fl (80-97); RED BLOOD COUNT 4.14 10^6/uL (4.35-5.55); RED CELL DISTRIBUTION WIDTH 13.7 % (11.5-14.0); WHITE BLOOD COUNT 7.2 10^3/uL (4.0-10.5)
[2019-10-04 06:54] LABS: BLOOD UREA NITROGEN 30 mg/dL (7-20); CALCIUM 8.2 mg/dL (8.4-10.2); CHLORIDE 82 mmol/L (98-107); GLUCOSE 271 mg/dL (75-110); POTASSIUM 3.5 mmol/L (3.6-5.0)
[2019-10-04 07:11] LABS: PLATELET COUNT 61 10^3/uL (150-450)
[2019-10-04 07:21] LABS: CARBON DIOXIDE 49 mmol/L (22-30)
[2019-10-04 07:25] LABS: ANION GAP 2 (5-19)
[2019-10-04] MEDS: INSULIN REG, HUMAN 100 UNIT/ML 3 ML VIAL (PYX) SUBCUT PRN ×3 (08:37→17:24)
[2019-10-04] MEDS: METFORMIN HCL 500 MG TABLET PO SCH ×2 (08:37→22:01)
[2019-10-04] MEDS: POTASSIUM CHLORIDE 10 MEQ TABLET.ER PO SCH ×3 (08:37→17:21)
[2019-10-04] MEDS: BUDESONIDE NEB 0.5 MG/2 ML AMPUL NEB SCH ×2 (08:54→21:20)
[2019-10-04] MEDS: METOPROLOL SUCCINATE 50 MG TAB.SR.24H PO SCH (09:28)
[2019-10-04] MEDS: GLIPIZIDE 10 MG TABLET PO SCH ×2 (09:28→17:21)
[2019-10-04] MEDS: CLOPIDOGREL BISULFATE 75 MG TABLET PO SCH (09:28)
[2019-10-04] MEDS: LOSARTAN POTASSIUM 50 MG TABLET PO SCH (09:28)
[2019-10-04] MEDS: FAMOTIDINE 20 MG TABLET PO SCH ×2 (09:29→22:01)
[2019-10-04] MEDS: INSULIN GLARGINE,HUM.REC.ANLOG 1,000 UNIT/10 ML VIAL SUBCUT SCH ×2 (09:29→22:01)
[2019-10-04] MEDS: FUROSEMIDE INJ/PF 40 MG/4 ML SDV IV SCH ×2 (09:29→17:21)
[2019-10-04] MEDS: DOCUSATE SODIUM 100 MG CAPSULE PO SCH ×2 (10:24→17:22)
--- NOTE | 2019-10-04 13:15 | PDOC PROGRESS REPORT ---
Subjective Progress Note for:: 10/04/19 Subjective:: Patient was seen on afternoon rounds. He was found resting in bed, comfortably, on supplemental oxygen at 3 L/min (baseline oxygen requirement). He was sleeping, difficult to wake, remains drowsy, and drifts back to sleep. Upon re-waking, he is agreeable to wearing BiPAP while sleeping. He states that his breathing is much improved. Notes increased edema and slight erythema to left lower leg. Some serous drainage noted. He denies fever, chills, chest pain, palpitations, orthopnea, abdominal pain, nausea vomiting and diarrhea. Denies pain to foot. Has no questions or concerns at this time. No concerns per nursing. Reason For Visit: ACUTE ON CHRONIC CONGESTIVE HEART FAILURE,ACUTE ON Physical Exam Vital Signs: Temp Pulse Resp BP Pulse Ox 97.9 F 61 17 152/99 H 92 10/04/19 11:18 10/04/19 11:18 10/04/19 12:56 10/04/19 11:18 10/04/19 12:56 Intake & Output 10/03/19 10/04/19 10/05/19 06:59 06:59 06:59 Intake Total 1380 892 462 Output Total 2225 1050 275 Balance -845 -158 187 Weight 118 kg 117.8 kg General appearance: PRESENT: no acute distress, cooperative, obese, well- developed, well-nourished Head exam: PRESENT: atraumatic, normocephalic Eye exam: PRESENT: conjunctiva pink, EOMI, PERRLA. ABSENT: scleral icterus Mouth exam: PRESENT: moist, tongue midline Respiratory exam: PRESENT: clear to auscultation tera, prolonged expiratory phas, symmetrical, unlabored, other - baseline O2. ABSENT: rales, rhonchi, wheezes Cardiovascular exam: PRESENT: RRR. ABSENT: diastolic murmur, rubs, systolic murmur Pulses: PRESENT: normal dorsalis pedis pul Vascular exam: PRESENT: normal capillary refill GI/Abdominal exam: PRESENT: normal bowel sounds, soft. ABSENT: distended, guarding, mass, organolmegaly, rebound, tenderness Rectal exam: PRESENT: deferred Extremities exam: PRESENT: full ROM, +1 edema - RLE, +2 edema - L LE. ABSENT: calf tenderness, clubbing, pedal edema Neurological exam: PRESENT: alert, awake, oriented to person, oriented to place, oriented to time, oriented to situation, CN II-XII grossly intact, other - Somnolent. ABSENT: motor sensory deficit Psychiatric exam: PRESENT: appropriate affect, normal mood. ABSENT: homicidal ideation, suicidal ideation Skin exam: PRESENT: dry, erythema - L LE, warm. ABSENT: cyanosis, rash Results Laboratory Results: 10/04/19 05:44 10/04/19 05:44 10/04/19 10/04/19 05:44 05:44 WBC 7.2 RBC 4.14 L Hgb 12.2 L Hct 36.4 L MCV 88 MCH 29.5 MCHC 33.5 RDW 13.7 Plt Count 61 L Sodium 132.7 L Potassium 3.5 L Chloride 82 L Carbon Dioxide 49 H* Anion Gap 2 L BUN 30 H Creatinine 0.80 Est GFR ( Amer) > 60 Glucose 271 H Calcium 8.2 L Magnesium 2.0 10/01/19 10/01/19 10/02/19 22:05 22:05 05:30 Creatine Kinase 132 CK-MB (CK-2) Troponin I 0.043 NT-Pro-B Natriuret Pep 954 H 10/02/19 10/02/19 10/02/19 09:58 12:07 12:07 Creatine Kinase 99 CK-MB (CK-2) 1.71 1.57 Troponin I 0.044 0.037 NT-Pro-B Natriuret Pep 10/02/19 10/02/19 18:33 18:33 Creatine Kinase 131 CK-MB (CK-2) 2.19 Troponin I 0.033 NT-Pro-B Natriuret Pep Assessment and Plan - Diagnosis (1) Acute on chronic congestive heart failure Qualifiers: Heart failure type: diastolic Qualified Code(s): I50.33 - Acute on chronic diastolic (congestive) heart failure Is this a current diagnosis for this admission?: Yes Plan: Improved; now maintaining oxygen saturations on his baseline O2 requirement. Echocardiogram reveals normal ejection fraction. No significant valvular disease. There is 1/4 diastolic heart failure. There may be some right-sided failure secondary to COPD as well. Unfortunately, daily weights and I&Os are questionable; unsure of his actual fluid deficit. Though on exam, he does appear to have decreased peripheral edema. Cardiology has been consulted. Continue metoprolol, losartan, spironolactone. Continue to diurese with IV furosemide. Daily statin and Plavix therapy. Cardiac diet. Fluid restricted 1.5 L daily. Daily weights, strict I&O's. Registered dietitian and patient educator consulted. (2) COPD exacerbation Is this a current diagnosis for this admission?: Yes Plan: Continue nebulizers and oxygen supplementation. Start Breo and Singulair daily. No antibiotics or steroids at this time. (3) Acute on chronic respiratory failure with hypoxia and hypercapnia Is this a current diagnosis for this admission?: Yes Plan: Improved. COVID testing negative. Secondary to #1 & 2 Management as above. (4) Hyperglycemia due to diabetes mellitus Is this a current diagnosis for this admission?: Yes Plan: A1c 9.8%. Resume home medication regiment Patient is placed on a consistent carb diet. Accu-Cheks before meals and at bedtime with Humalog for sliding scale coverage. Hypoglycemia protocol in place. Registered dietitian clinical document improvement educator consulted. (5) Hypokalemia Is this a current diagnosis for this admission?: Yes Plan: Additional oral replacement today. Follow-up chemistry and magnesium level. (6) Tobacco use disorder, severe, dependence Is this a current diagnosis for this admission?: Yes Plan: Nicotine patch. (7) Cellulitis Qualifiers: Site of cellulitis: extremity Site of cellulitis of extremity: lower extremity Laterality: left Qualified Code(s): L03.116 - Cellulitis of left lower limb Is this a current diagnosis for this admission?: Yes Plan: Mild left lower extremity cellulitis; slight increase in edema as compared to right. Slight erythema. Scant serous drainage noted. Start Keflex. - Time Time Spent with patient: 25-34 minutes Medications reviewed and adjusted accordingly: Yes Anticipated Discharge Disposition: Home with Home Health Anticipated Discharge Timeframe: within 48 hours
[2019-10-04] MEDS: CEPHALEXIN 500 MG CAPSULE PO SCH ×2 (13:55→17:22)
--- NOTE | 2019-10-04 14:57 | PDOC PROGRESS REPORT ---
Subjective Progress Note for:: 10/04/19 Subjective:: Patient seen and examined. He reports improvement in symptoms. He no longer reports dyspnea. He is waiting to take his pulse and waiting on his supper. Reason For Visit: ACUTE ON CHRONIC CONGESTIVE HEART FAILURE,ACUTE ON Physical Exam Vital Signs: Temp Pulse Resp BP Pulse Ox 97.9 F 83 17 152/99 H 92 10/04/19 11:18 10/04/19 14:00 10/04/19 12:56 10/04/19 11:18 10/04/19 12:56 Intake & Output 10/03/19 10/04/19 10/05/19 06:59 06:59 06:59 Intake Total 1380 892 462 Output Total 2225 1050 275 Balance -845 -158 187 Weight 118 kg 117.8 kg General appearance: PRESENT: well-developed, well-nourished Head exam: PRESENT: atraumatic, normocephalic Eye exam: PRESENT: EOMI Mouth exam: PRESENT: moist Respiratory exam: PRESENT: crackles, decreased breath sounds, prolonged expiratory phas, symmetrical, unlabored Cardiovascular exam: PRESENT: RRR, +S1, +S2 Pulses: PRESENT: normal radial pulses GI/Abdominal exam: PRESENT: soft Rectal exam: PRESENT: deferred Musculoskeletal exam: PRESENT: other - Left foot appears erythematous and mildly swollen. Neurological exam: PRESENT: altered Skin exam: PRESENT: dry, intact Results Laboratory Results: 10/04/19 05:44 10/04/19 05:44 10/04/19 10/04/19 05:44 05:44 WBC 7.2 RBC 4.14 L Hgb 12.2 L Hct 36.4 L MCV 88 MCH 29.5 MCHC 33.5 RDW 13.7 Plt Count 61 L Sodium 132.7 L Potassium 3.5 L Chloride 82 L Carbon Dioxide 49 H* Anion Gap 2 L BUN 30 H Creatinine 0.80 Est GFR ( Amer) > 60 Glucose 271 H Calcium 8.2 L Magnesium 2.0 10/01/19 10/01/19 10/02/19 22:05 22:05 05:30 Creatine Kinase 132 CK-MB (CK-2) Troponin I 0.043 NT-Pro-B Natriuret Pep 954 H 10/02/19 10/02/19 10/02/19 09:58 12:07 12:07 Creatine Kinase 99 CK-MB (CK-2) 1.71 1.57 Troponin I 0.044 0.037 NT-Pro-B Natriuret Pep 10/02/19 10/02/19 18:33 18:33 Creatine Kinase 131 CK-MB (CK-2) 2.19 Troponin I 0.033 NT-Pro-B Natriuret Pep Assessment & Plan - Diagnosis (1) Acute on chronic congestive heart failure Qualifiers: Heart failure type: diastolic Qualified Code(s): I50.33 - Acute on chronic diastolic (congestive) heart failure Is this a current diagnosis for this admission?: Yes Plan: Acute decompensated congestive heart failure Probably chronic diastolic heart failure with acute exacerbation Continue diuretic therapy Continue to watch fluid intake No added salt in the diet. (2) Hypertension Qualifiers: Hypertension type: essential hypertension Qualified Code(s): I10 - Ess ential (primary) hypertension Is this a current diagnosis for this admission?: Yes (3) Hypokalemia Is this a current diagnosis for this admission?: Yes (4) COPD exacerbation Is this a current diagnosis for this admission?: Yes Plan: Possible COPD exacerbation with CO2 retention with mild mental status changes Patient has been placed on BiPAP Supportive care - Notes Notes: Possible mild cellulitic changes in the left foot. Patient has been placed on antibiotic.
--- NOTE | 2019-10-04 16:03 | RADIOLOGY REPORT (SQ) ---
EXAM DESCRIPTION: CHEST SINGLE VIEW IMAGES COMPLETED DATE/TIME: 10/04/2019 3:30 pm REASON FOR STUDY: hypoxia COMPARISON: 10/01/2019 EXAM PARAMETERS: NUMBER OF VIEWS: One view. TECHNIQUE: Single frontal radiographic view of the chest acquired. RADIATION DOSE: NA LIMITATIONS: None. FINDINGS: LUNGS AND PLEURA: 3 cm masslike density the left lower lung. Small left pleural effusion. MEDIASTINUM AND HILAR STRUCTURES: No masses. Contour normal. HEART AND VASCULAR STRUCTURES: Heart size is borderline. No pulmonary edema. BONES: No acute findings. HARDWARE: None in the chest. OTHER: No other significant finding. IMPRESSION: There appears to be a 3 cm mass in the left lower lung. Is possible that this represent s a healing anterior rib fracture. Recommend CT. There is a small left pleural effusion. Borderlin e cardiomegaly without pulmonary edema. TECHNICAL DOCUMENTATION: JOB ID: [id number] 2010 [employer]- All Rights Reserved Reading location - IP/workstation name: [email or web address]
[2019-10-04] MEDS: ATORVASTATIN CALCIUM 20 MG TABLET PO SCH (22:01)
[2019-10-04] MEDS: MONTELUKAST SODIUM 10 MG TABLET PO SCH (22:01)
[2019-10-04] MEDS: NYSTATIN CREAM 15 GM TP SCH (22:02)
[2019-10-05] MEDS: CEPHALEXIN 500 MG CAPSULE PO SCH ×4 (00:22→17:04)
[2019-10-05] MEDS: GABAPENTIN 300 MG CAPSULE PO SCH ×3 (05:46→21:17)
[2019-10-05] MEDS: HEPARIN SOD (PORCINE) 5,000 UNIT/ML 1 ML VIAL SUBCUT SCH ×3 (05:46→21:17)
[2019-10-05 07:03] LABS: HEMOGLOBIN 11.6 g/dL (13.5-17.0); MEAN CORPUSCULAR HEMOGLOBIN 29.5 pg (27.0-33.4); MEAN CORPUSCULAR HGB CONC 33.3 g/dL (32.0-36.0); MEAN CORPUSCULAR VOLUME 89 fl (80-97); RED BLOOD COUNT 3.95 10^6/uL (4.35-5.55); RED CELL DISTRIBUTION WIDTH 14.5 % (11.5-14.0); WHITE BLOOD COUNT 6.4 10^3/uL (4.0-10.5)
[2019-10-05 07:22] LABS: BLOOD UREA NITROGEN 35 mg/dL (7-20); CHLORIDE 85 mmol/L (98-107); GLUCOSE 223 mg/dL (75-110)
[2019-10-05 07:30] LABS: PLATELET COUNT 64 10^3/uL (150-450)
[2019-10-05 07:39] LABS: ANION GAP 1 (5-19); CARBON DIOXIDE 49 mmol/L (22-30)
[2019-10-05] MEDS: IPRATROPIUM BROMIDE 0.02% NEB 0.5 MG/2.5 ML AMPUL NEB SCH ×2 (08:42→16:23)
[2019-10-05] MEDS: LEVALBUTEROL HCL NEB 1.25 MG/3 ML AMPUL NEB SCH ×2 (08:42→16:23)
[2019-10-05] MEDS: BUDESONIDE NEB 0.5 MG/2 ML AMPUL NEB SCH (08:42)
[2019-10-05] MEDS: FUROSEMIDE INJ/PF 40 MG/4 ML SDV IV SCH ×2 (09:49→17:11)
[2019-10-05] MEDS: INSULIN GLARGINE,HUM.REC.ANLOG 1,000 UNIT/10 ML VIAL SUBCUT SCH ×2 (09:49→21:17)
[2019-10-05] MEDS: METFORMIN HCL 500 MG TABLET PO SCH ×2 (09:50→21:17)
[2019-10-05] MEDS: FAMOTIDINE 20 MG TABLET PO SCH ×2 (09:50→21:17)
[2019-10-05] MEDS: DOCUSATE SODIUM 100 MG CAPSULE PO SCH ×2 (09:50→17:03)
[2019-10-05] MEDS: GLIPIZIDE 10 MG TABLET PO SCH ×2 (09:50→17:03)
[2019-10-05] MEDS: POTASSIUM CHLORIDE 10 MEQ TABLET.ER PO SCH ×3 (09:50→17:03)
[2019-10-05] MEDS: METOPROLOL SUCCINATE 50 MG TAB.SR.24H PO SCH (09:50)
[2019-10-05] MEDS: CLOPIDOGREL BISULFATE 75 MG TABLET PO SCH (09:51)
[2019-10-05] MEDS: FLUTICASONE/VILANTEROL 200-25 MCG/DOSE IH SCH (09:51)
[2019-10-05] MEDS: LOSARTAN POTASSIUM 50 MG TABLET PO SCH (09:51)
[2019-10-05] MEDS: NYSTATIN CREAM 15 GM TP SCH ×2 (09:51→21:18)
--- NOTE | 2019-10-05 16:22 | PDOC PROGRESS REPORT ---
Subjective Progress Note for:: 10/05/19 Subjective:: Patient seen and examined. Patient has been having episodes of altered sensorium due to CO2 retention. Now he has been placed on BiPAP and is resting. He was also started on antibiotics for possible cellulitis in the left foot. Overall his heart failure symptoms have improved considerably. Reason For Visit: ACUTE ON CHRONIC CONGESTIVE HEART FAILURE,ACUTE ON Physical Exam Vital Signs: Temp Pulse Resp BP Pulse Ox 97.5 F 82 19 101/58 L 95 10/05/19 11:54 10/05/19 11:54 10/05/19 11:54 10/05/19 11:54 10/05/19 11:54 Intake & Output 10/04/19 10/05/19 10/06/19 06:59 06:59 06:59 Intake Total 892 2410 240 Output Total 1050 1350 Balance -158 1060 240 Weight 117.8 kg 117.5 kg General appearance: PRESENT: no acute distress, obese, well-developed, well- nourished Head exam: PRESENT: atraumatic, normocephalic Eye exam: PRESENT: conjunctiva pink, EOMI Mouth exam: PRESENT: moist Respiratory exam: PRESENT: crackles, decreased breath sounds, symmetrical, unlabored Cardiovascular exam: PRESENT: RRR, +S1, +S2 Pulses: PRESENT: normal radial pulses Rectal exam: PRESENT: deferred Neurological exam: PRESENT: alert, awake, oriented to person, oriented to place, oriented to time, oriented to situation Psychiatric exam: PRESENT: appropriate affect Skin exam: PRESENT: dry, intact Results Laboratory Results: 10/05/19 05:58 10/05/19 05:58 10/05/19 10/05/19 05:58 05:58 WBC 6.4 RBC 3.95 L Hgb 11.6 L Hct 35.0 L MCV 89 MCH 29.5 MCHC 33.3 RDW 14.5 H Plt Count 64 L Sodium 134.8 L Potassium 4.0 Chloride 85 L Carbon Dioxide 49 H* Anion Gap 1 L BUN 35 H Creatinine 1.10 Est GFR ( Amer) > 60 Glucose 223 H Calcium 8.0 L Magnesium 1.9 10/01/19 10/01/19 10/02/19 22:05 22:05 05:30 Creatine Kinase 132 CK-MB (CK-2) Troponin I 0.043 NT-Pro-B Natriuret Pep 954 H 10/02/19 10/02/19 10/02/19 09:58 12:07 12:07 Creatine Kinase 99 CK-MB (CK-2) 1.71 1.57 Troponin I 0.044 0.037 NT-Pro-B Natriuret Pep 10/02/19 10/02/19 10/05/19 18:33 18:33 05:58 Creatine Kinase 131 CK-MB (CK-2) 2.19 Troponin I 0.033 NT-Pro-B Natriuret Pep 833 H Impressions: Chest X-Ray 10/04/19 00:00 IMPRESSION: There appears to be a 3 cm mass in the left lower lung. Is possible that this represents a healing anterior rib fracture. Recommend CT. There is a small left pleural effusion. Borderline cardiomegaly without pulmon cristofer edema. 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 that the significant component of his distress is due to CO2 retention and COPD Continue to watch volume status Continue maintenance diuretic therapy (2) Hypertension Qualifiers: Hypertension type: essential hypertension Qualified Code(s): I10 - Essential (primary) hypertension Is this a current diagnosis for this admission?: Yes Plan: Continue metoprolol succinate 100 mg daily (3) Hypokalemia Is this a current diagnosis for this admission?: Yes Plan: Hypokalemia has been corrected (4) COPD exacerbation Is this a current diagnosis for this admission?: Yes Plan: Possible COPD exacerbation with CO2 retention with mild mental status changes Patient has been placed on BiPAP Supportive care
--- NOTE | 2019-10-05 17:09 | PDOC PROGRESS REPORT ---
Subjective Progress Note for:: 10/05/19 Subjective:: Patient was seen on afternoon rounds. He was found resting in bed, comfortably, on BiPAP (3 L/min baseline oxygen requirement). He was sleeping, but easy to wake; especially as compared to yesterday. Falls back to sleep quickly. Denies difficulty breathing. Reports RLE tenderness is slightly improved; edema remains though erythema has resolved. He denies fever, chills, chest pain, palpitations, orthopnea, abdominal pain, nausea vomiting and diarrhea. Has no questions or concerns at this time. No concerns per nursing. Reason For Visit: ACUTE ON CHRONIC CONGESTIVE HEART FAILURE,ACUTE ON Physical Exam Vital Signs: Temp Pulse Resp BP Pulse Ox 97.5 F 82 20 101/58 L 95 10/05/19 11:54 10/05/19 16:00 10/05/19 16:00 10/05/19 11:54 10/05/19 16:00 Intake & Output 10/04/19 10/05/19 10/06/19 06:59 06:59 06:59 Intake Total 892 2410 240 Output Total 1050 1350 Balance -158 1060 240 Weight 117.8 kg 117.5 kg General appearance: PRESENT: no acute distress, disheveled, morbidly obese, well-developed, well-nourished Head exam: PRESENT: atraumatic, normocephalic Eye exam: PRESENT: conjunctiva pink, EOMI, PERRLA. ABSENT: scleral icterus Mouth exam: PRESENT: moist, tongue midline Respiratory exam: PRESENT: clear to auscultation tera, decreased breath sounds - bibasilar, prolonged expiratory phas, symmetrical, unlabored, other - biPAP. ABSENT: rales, rhonchi, wheezes Cardiovascular exam: PRESENT: RRR. ABSENT: diastolic murmur, rubs, systolic murmur Pulses: PRESENT: normal dorsalis pedis pul Vascular exam: PRESENT: normal capillary refill Extremities exam: PRESENT: full ROM, +2 edema - BLE. ABSENT: calf tenderness, clubbing, pedal edema Neurological exam: PRESENT: alert, awake, oriented to person, oriented to place, oriented to time, oriented to situation, CN II-XII grossly intact. ABSENT: motor sensory deficit Psychiatric exam: PRESENT: appropriate affect, normal mood. ABSENT: homicidal ideation, suicidal ideation Skin exam: PRESENT: dry, intact, warm. ABSENT: cyanosis, rash Results Laboratory Results: 10/05/19 05:58 10/05/19 05:58 10/05/19 10/05/19 05:58 05:58 WBC 6.4 RBC 3.95 L Hgb 11.6 L Hct 35.0 L MCV 89 MCH 29.5 MCHC 33.3 RDW 14.5 H Plt Count 64 L Sodium 134.8 L Potassium 4.0 Chloride 85 L Carbon Dioxide 49 H* Anion Gap 1 L BUN 35 H Creatinine 1.10 Est GFR ( Amer) > 60 Glucose 223 H Calcium 8.0 L Magnesium 1.9 10/01/19 10/01/19 10/02/19 22:05 22:05 05:30 Creatine Kinase 132 CK-MB (CK-2) Troponin I 0.043 NT-Pro-B Natriuret Pep 954 H 10/02/19 10/02/19 10/02/19 09:58 12:07 12:07 Creatine Kinase 99 CK-MB (CK-2) 1.71 1.57 Troponin I 0.044 0.037 NT-Pro-B Natriuret Pep 10/02/19 10/02/19 10/05/19 18:33 18:33 05:58 Creatine Kinase 131 CK-MB (CK-2) 2.19 Troponin I 0.033 NT-Pro-B Natriuret Pep 833 H Impressions: Chest X-Ray 10/04/19 00:00 IMPRESSION: There appears to be a 3 cm mass in the left lower lung. Is possible that this represents a healing anterior rib fracture. Recommend CT. There is a small left pleural effusion. Borderline cardiomegaly without pulmonary edema. Assessment and Plan - Diagnosis (1) Acute on chronic congestive heart failure Qualifiers: Heart failure type: diastolic Qualified Code(s): I50.33 - Acute on chronic diastolic (congestive) heart failure Is this a current diagnosis for this admission?: Yes Plan: Acute exacerbation has resolved. Echocardiogram reveals normal ejection fraction. No significant valvular d isease. There is 1/4 diastolic heart failure. There may be some right-sided failure secondary to COPD as well. Unfortunately, daily weights and I&Os are questionable; unsure of his actual fluid deficit. Though on exam, he does appear to have decreased peripheral edema. Cardiology has been consulted. Continue metoprolol, losartan, spironolactone. Continue to diurese with IV furosemide. Daily statin and Plavix therapy. Cardiac diet. Fluid restricted 1.5 L daily. Daily weights, strict I&O's. Registered dietitian and patient educator consulted. (2) COPD exacerbation Is this a current diagnosis for this admission?: Yes Plan: Continue nebulizers and oxygen supplementation. Start Breo and Singulair daily. Will start p.o. prednison r/t CO2 retention (3) Acute on chronic respiratory failure with hypoxia and hypercapnia Is this a current diagnosis for this admission?: Yes Plan: Improved. COVID testing negative. Secondary to #1 & 2 Likely SILVER. Will benefit from outpatient sleep study. Will d/c w/ referral to pulmonology. Management as above. (4) Hyperglycemia due to diabetes mellitus Is this a current diagnosis for this admission?: Yes Plan: A1c 9.8%. Resume home medication regiment Patient is placed on a consistent carb diet. Accu-Cheks before meals and at bedtime with Humalog for sliding scale coverage. Hypoglycemia protocol in place. Registered dietitian primary special educator consulted. (5) Hypokalemia Is this a current diagnosis for this admission?: Yes Plan: Replete (6) Tobacco use disorder, severe, dependence Is this a current diagnosis for this admission?: Yes Plan: Nicotine patch. (7) Cellulitis Qualifiers: Site of cellulitis: extremity Site of cellulitis of extremity: lower extremity Laterality: left Qualified Code(s): L03.116 - Cellulitis of left lower limb Is this a current diagnosis for this admission?: Yes Plan: Improved. Mild left lower extremity cellulitis; slight increase in edema as compared to right. Slight erythema. Scant serous drainage noted. Continue Keflex; day #2/7 - Time Time Spent with patient: 25-34 minutes Medications reviewed and adjusted accordingly: Yes Anticipated Discharge Disposition: Home, Self Care Anticipated Discharge Timeframe: within 24 hours
[2019-10-05] MEDS: PREDNISONE 20 MG TABLET PO SCH (18:12)
[2019-10-05] MEDS: MONTELUKAST SODIUM 10 MG TABLET PO SCH (21:17)
[2019-10-05] MEDS: ATORVASTATIN CALCIUM 20 MG TABLET PO SCH (21:17)
[2019-10-05] MEDS: INSULIN REG, HUMAN 100 UNIT/ML 3 ML VIAL (PYX) SUBCUT PRN (21:23)
[2019-10-06] MEDS: IPRATROPIUM BROMIDE 0.02% NEB 0.5 MG/2.5 ML AMPUL NEB SCH ×2 (00:21→09:03)
[2019-10-06] MEDS: LEVALBUTEROL HCL NEB 1.25 MG/3 ML AMPUL NEB SCH ×2 (00:21→09:03)
[2019-10-06] MEDS: CEPHALEXIN 500 MG CAPSULE PO SCH ×3 (00:45→11:19)
[2019-10-06] MEDS: GABAPENTIN 300 MG CAPSULE PO SCH ×2 (05:39→13:23)
[2019-10-06] MEDS: HEPARIN SOD (PORCINE) 5,000 UNIT/ML 1 ML VIAL SUBCUT SCH ×2 (05:40→13:21)
[2019-10-06 06:39] LABS: BLOOD UREA NITROGEN 39 mg/dL (7-20); CALCIUM 8.2 mg/dL (8.4-10.2); CHLORIDE 89 mmol/L (98-107); GLUCOSE 234 mg/dL (75-110)
[2019-10-06 06:41] LABS: POTASSIUM 3.7 mmol/L (3.6-5.0)
[2019-10-06 06:47] LABS: ANION GAP 4 (5-19)
[2019-10-06 06:59] LABS: CARBON DIOXIDE 46 mmol/L (22-30)
[2019-10-06] MEDS: POTASSIUM CHLORIDE 10 MEQ TABLET.ER PO SCH ×2 (08:44→11:15)
[2019-10-06] MEDS: METFORMIN HCL 500 MG TABLET PO SCH (08:44)
[2019-10-06] MEDS: GLIPIZIDE 10 MG TABLET PO SCH (11:15)
[2019-10-06] MEDS: METOPROLOL SUCCINATE 50 MG TAB.SR.24H PO SCH (11:15)
[2019-10-06] MEDS: CLOPIDOGREL BISULFATE 75 MG TABLET PO SCH (11:15)
[2019-10-06] MEDS: LOSARTAN POTASSIUM 50 MG TABLET PO SCH (11:15)
[2019-10-06] MEDS: FAMOTIDINE 20 MG TABLET PO SCH (11:15)
[2019-10-06] MEDS: FUROSEMIDE INJ/PF 40 MG/4 ML SDV IV SCH (11:15)
[2019-10-06] MEDS: PREDNISONE 20 MG TABLET PO SCH (11:15)
[2019-10-06] MEDS: DOCUSATE SODIUM 100 MG CAPSULE PO SCH (11:15)
[2019-10-06] MEDS: INSULIN GLARGINE,HUM.REC.ANLOG 1,000 UNIT/10 ML VIAL SUBCUT SCH (11:16)
[2019-10-06] MEDS: FLUTICASONE/VILANTEROL 200-25 MCG/DOSE IH SCH (11:16)
[2019-10-06] MEDS: NYSTATIN CREAM 15 GM TP SCH (11:16)
--- NOTE | 2019-10-06 15:11 | RADIOLOGY REPORT (SQ) ---
EXAM DESCRIPTION: CT CHEST WITH IMAGES COMPLETED DATE/TIME: 10/06/2019 2:52 pm REASON FOR STUDY: 3cm lung lesion on CXR COMPARISON: Chest x-ray dated 10/04/2019 TECHNIQUE: CT scan of the chest performed using helical scanning technique with dynamic intravenous contrast injection. Images reviewed with lung, soft tissue and bone windows. Reconstructed coronal and sagittal MPR and MIP images reviewed. All images stored on PACS. All CT scanners at this facility use dose modulation, iterative reconstruction, and/or weight based d osing when appropriate to reduce radiation dose to as low as reasonably achievable (ALARA). [facility]: Dose Right [facility]: CareDose [facility]: Dose Right [facility]: Teradose 4D [facility]: Hobby CONTRAST TYPE AND DOSE: contrast/concentration: Isovue 350.00 mmol/ml; Total Contrast Delivered: 80. 0 ml; Total Saline Delivered: 39.9 ml RENAL FUNCTION: BUN 39, creatinine 0.96 RADIATION DOSE: CT Rad equipment meets quality standard of care and radiation dose reduction techniq ues were employed. CTDIvol: 17.1 mGy. DLP: 725 mGy-cm. . LIMITATIONS: None. FINDINGS: LUNGS AND PLEURA: There is a 3 cm subpleural mass in the left upper lobe as was demonstrat ed on conventional radiograph. This is suspicious for neoplasm. There is bibasilar airspace disease most likely atelectasis. Slight pleural thickening. There is a small nodular opacity in the subple ural space on series 4, image 79. This most likely represents focal airspace disease as well althoug h metastatic lesion cannot be excluded. This measures 7.5 mm in diameter. HILAR AND MEDIASTINAL STRUCTURES: 3.7 cm AP window lymph node. HEART AND VASCULAR STRUCTURES: No aneurysm or dissection. No central pulmonary emboli. No pericardi al effusion. HARDWARE: None in the chest. UPPER ABDOMEN: Widespread metastatic disease throughout the liver. Bilateral adrenal fullness. THYROID AND OTHER SOFT TISSUES: No masses. No adenopathy. BONES: No significant finding. OTHER: No other significant finding. IMPRESSION: 1. 3 cm subpleural mass in the left upper lobe consistent with neoplasm. Associated AP window adenopathy with a single node measuring 3.7 cm. 2. Widespread hepatic metastasis. TECHNICAL DOCUMENTATION: JOB ID: [id number] Quality ID # [id number]: Final reports with documentation of one or more dose reduction techniques (e.g., Au tomated exposure control, adjustment of the mA and/or kV according to patient size, use of iterative reconstruction technique) 2010 [employer]- All Rights Reserved Reading location - IP/workstation name: [email or web address]
[2019-10-06 15:26] VITALS: BP 135/70
--- NOTE | 2019-10-08 17:50 | PDOC DISCHARGE SUMMARY ---
Impression - Admit/DC Date/PCP Admission Date/Primary Care Provider: 10/02/19 01:[facility] Discharge Date: 10/06/19 - Discharge Diagnosis (1) Acute on chronic congestive heart failure Is this a current diagnosis for this admission?: Yes (2) COPD exacerbation Is this a current diagnosis for this admission?: Yes (3) Acute on chronic respiratory failure with hypoxia and hypercapnia Is this a current diagnosis for this admission?: Yes (4) Hyperglycemia due to diabetes mellitus Is this a current diagnosis for this admission?: Yes (5) Hypokalemia Is this a current diagnosis for this admission?: Yes (6) Tobacco use disorder, severe, dependence Is this a current diagnosis for this admission?: Yes (7) Cellulitis Is this a current diagnosis for this admission?: Yes - Additional Information Resuscitation Status: Full Code Discharge Diet: Cardiac, Diabetic Discharge Activity: Activity As Tolerated, Balance Activity w/Rest, Weigh Daily Referrals: ALYSSA BAZAN MD [ACTIVE STAFF] - (earliest available appointment. The patient will call for his own appointment..The DE has to get Mr. Sydnee ruiz.) [facility] [Primary Care Provider] - (The patient will call for his own appointment.) Prescriptions: Fluticasone/Vilanterol [Breo 200-25 Mcg Ellipta 14 Dose/Dpi] 1 inh IH DAILY #1 inhaler Losartan Potassium [Cozaar 50 mg Tablet] 50 mg PO DAILY #30 tablet Prednisone [Deltasone 20 mg Tablet] 60 mg PO DAILY #12 tablet Cephalexin Monohydrate [Keflex 500 mg Capsule] 500 mg PO Q6 #20 capsule Nicotine [Nicoderm 21 mg/24 Hr Transderm Patch] 1 each TD DAILYP PRN #30 patch.td24 PRN Reason: Famotidine [Pepcid 20 mg Tablet] 20 mg PO Q12 #60 tablet Clopidogrel Bisulfate [Plavix 75 mg Tablet] 75 mg PO DAILY #30 tablet Montelukast Sodium [Singulair 10 mg Tablet] 10 mg PO QHS #30 tablet Metoprolol Succinate [Toprol Xl 50 mg Tab.sr] 100 mg PO DAILY #60 tab.sr.24h Home Medications: Furosemide [Lasix] 80 mg PO DAILY 04/18/15 Metformin HCl [Glucophage 500 mg Tablet] 1,000 mg PO QHS 04/18/15 Albuterol Sulfate [Proair HFA Inhalation Aerosol 8.5 gm MDI] 2 puff IH Q4HP PRN 10/03/19 Atorvastatin Calcium [Lipitor 20 mg Tablet] 20 mg PO QHS 10/03/19 Baclofen [Baclofen 10 mg Tablet] 10 mg PO BIDP PRN 10/03/19 Gabapentin 300 mg PO TID 10/03/19 Glipizide [Glucotrol 10 mg Tablet] 10 mg PO BID 10/03/19 Metformin HCl [Glucophage 500 mg Tablet] 1,500 mg PO QAM 10/03/19 Naproxen 500 mg PO BIDP PRN 10/03/19 Acetaminophen [Tylenol 325 mg Tablet] 650 mg PO Q4HP PRN tablet 10/06/19 Cephalexin Monohydrate [Keflex 500 mg Capsule] 500 mg PO Q6 #20 capsule 10/06/19 Clopidogrel Bisulfate [Plavix 75 mg Tablet] 75 mg PO DAILY #30 tablet 10/06/19 Famotidine [Pepcid 20 mg Tablet] 20 mg PO Q12 #60 tablet 10/06/19 Fluticasone/Vilanterol [Breo 200-25 Mcg Ellipta 14 Dose/Dpi] 1 inh IH DAILY #1 inhaler 10/06/19 Losartan Potassium [Cozaar 50 mg Tablet] 50 mg PO DAILY #30 tablet 10/06/19 Metoprolol Succinate [Toprol Xl 50 mg Tab.sr] 100 mg PO DAILY #60 tab.sr.24h 10/06/19 Montelukast Sodium [Singulair 10 mg Tablet] 10 mg PO QHS #30 tablet 10/06/19 Nicotine [Nicoderm 21 mg/24 Hr Transderm Patch] 1 each TD DAILYP PRN #30 patch.td24 10/06/19 Prednisone [Deltasone 20 mg Tablet] 60 mg PO DAILY #12 tablet 10/06/19 History of Present Illiness History of Present Illness: Per H&P by Dr. Conner: ERIC DIAZ is a 64 year old male who presented to the emergency room with a one-week history of dyspnea on exertion. He admits a gradual onset and progressive development of dyspnea on exertion over the course of the last week, becoming severe for the last 2 days. His exertional dyspnea has been accompanied by increased swelling of his lower extremities and a nonproductive cough. His exertional dyspnea is associated with his inability to use continuous oxygen at home (3 L/min per nasal cannula) due to having exhausted the supply in his oxygen tank 2 days ago. He denies other associated or accompanying signs and symptoms. He admits prior similar episodes due to his CHF and COPD. He has not identified any aggravating or ameliorating factors for his exertional dyspnea. In the emergency room he was found to have a potassium of 2.2 and was noted to have weeping edema of his bilateral lower extremities. He was subsequently admitted to the hospital for further evaluation and treatment. Hospital Course Hospital Course: (1) Acute on chronic congestive heart failure Acute exacerbation has resolved. Echocardiogram reveals normal ejection fraction. No significant valvular disease. There is 1/4 diastolic heart failure. There may be some right-sided failure secondary to COPD as well. Unfortunately, daily weights and I&Os are questionable; unsure of his actual f luid deficit. Though on exam, he does appear to have decreased peripheral edema. Cardiology has been consulted. Continue metoprolol, losartan, spironolactone. Resume home dose furosemide at dischage. Daily statin and Plavix therapy. Cardiac diet. Fluid restricted 1.5 L daily. Daily weights, strict I&O's. Registered dietitian and patient educator were consulted. Close outpatient follow up. (2) COPD exacerbation Continue nebulizers and oxygen supplementation. Start Breo and Singulair daily. p.o. prednisone (3) Acute on chronic respiratory failure with hypoxia and hypercapnia Improved. COVID testing negative. Secondary to #1 & 2 Likely SILVER. Will benefit from outpatient sleep study. Pulmonology consulted. Patient stated that he did not wish to stay until Dr. Bazan would be able to round; wants to d/c with outpatient follow up. Discussed w/ Dr. Bazan. He recommended CT chest prior to d/c. Discussed w/ patient that I would call with any concerning CT results. Remaining management as above. (4) Hyperglycemia due to diabetes mellitus A1c 9.8%. Resume home medication regiment Patient is placed on a consistent carb diet. Did meet with the family living educator prior to discharge. (5) Hypokalemia Replete (6) Tobacco use disorder, severe, dependence Smoking cessation is encouraged. Nicotine patch. (7) Cellulitis Improved. Mild left lower extremity cellulitis; slight increase in edema as compared to right. Continue Keflex; provided a prescription at discharge to complete course of therapy. Physical Exam Vital Signs: Temp Pulse Resp BP Pulse Ox 97.7 F 102 H 20 135/70 H 100 10/06/19 15:25 10/06/19 15:25 10/06/19 15:25 10/06/19 15:25 10/06/19 15:25 Intake & Output 10/07/19 10/08/19 10/09/19 06:59 06:59 06:59 Intake Total 480 Output Total 300 Balance 180 General appearance: PRESENT: no acute distress, disheveled, morbidly obese, well-developed, well-nourished Head exam: PRESENT: atraumatic, normocephalic Eye exam: PRESENT: conjunctiva pink, EOMI, PERRLA. ABSENT: scleral icterus Mouth exam: PRESENT: moist, tongue midline Respiratory exam: PRESENT: clear to auscultation tera, prolonged expiratory phas, symmetrical, unlabored, other - baseline supplemental oxygen. ABSENT: rales, rhonchi, wheezes Cardiovascular exam: PRESENT: RRR. ABSENT: diastolic murmur, rubs, systolic murmur Pulses: PRESENT: normal dorsalis pedis pul Vascular exam: PRESENT: normal capillary refill GI/Abdominal exam: PRESENT: normal bowel sounds, soft. ABSENT: distended, guarding, mass, organolmegaly, rebound, tenderness Rectal exam: PRESENT: deferred Extremities exam: PRESENT: full ROM, +1 edema - BLE. ABSENT: calf tenderness, clubbing, pedal edema Neurological exam: PRESENT: alert, awake, oriented to person, oriented to place, oriented to time, oriented to situation, CN II-XII grossly intact. ABSENT: motor sensory deficit Psychiatric exam: PRESENT: agitated, appropriate affect, normal mood. ABSENT: homicidal ideation, suicidal ideation Skin exam: PRESENT: dry, intact, warm. ABSENT: cyanosis, rash Results Laboratory Results: WBC 6.4 10^3/uL (4.0-10.5) 10/05/19 05:58 RBC 3.95 10^6/uL (4.35-5.55) L 10/05/19 05:58 Hgb 11.6 g/dL (13.5-17.0) L 10/05/19 05:58 Hct 35.0 % (37.9-51.0) L 10/05/19 05:58 MCV 89 fl (80-97) 10/05/19 05:58 MCH 29.5 pg (27.0-33.4) 10/05/19 05:58 MCHC 33.3 g/dL (32.0-36.0) 10/05/19 05:58 RDW 14.5 % (11.5-14.0) H 10/05/19 05:58 Plt Count 64 10^3/uL (150-450) L 10/05/19 05:58 Lymph % (Auto) Not Reportable 10/01/19 22:05 [place] % (Auto) Not Reportable 10/01/19 22:05 Eos % (Auto) Not Reportable 10/01/19 22:05 Baso % (Auto) Not Reportable 10/01/19 22:05 Absolute Neuts (auto) Not Reportable 10/01/19 22:05 Absolute Lymphs (auto) Not Reportable 10/01/19 22:05 Absolute Monos (auto) Not Reportable 10/01/19 22:05 Absolute Eos (auto) Not Reportable 10/01/19 22:05 Absolute Basos (auto) Not Reportable 10/01/19 22:05 Total Counted 100 10/01/19 22:05 Seg Neutrophils % Not Reportable 10/01/19 22:05 Seg Neuts % (Manual) 93 % (42-78) H 10/01/19 22:05 Lymphocytes % (Manual) 2 % (13-45) L 10/01/19 22:05 Monocytes % (Manual) 4 % (3-13) 10/01/19 22:05 Eosinophils % (Manual) 1 % (0-6) 10/01/19 22:05 Basophils % (Manual) 0 % (0-2) 10/01/19 22:05 Abs Neuts (Manual) 12.6 10^3/uL (1.7-8.2) H 10/01/19 22:05 Abs Lymphs (Manual) 0.3 10^3/uL (0.5-4.7) L 10/01/19 22:05 Abs Monocytes (Manual) 0.5 10^3/uL (0.1-1.4) 10/01/19 22:05 Absolute Eos (Manual) 0.1 10^3/uL (0.0-0.6) 10/01/19 22:05 Abs Basophils (Manual) 0.0 10^3/uL (0.0-0.2) 10/01/19 22:05 Large Platelets PRESENT 10/01/19 22:05 Platelet Comment DECREASED 10/01/19 22:05 Ovalocytes SLIGHT 10/01/19 22:05 VBG pH 7.51 (7.30-7.42) H 10/01/19 23:45 VBG pCO2 74.4 mmHg (35-63) H* 10/01/19 23:45 VBG HCO3 58.4 mmol/L (20-32) H 10/01/19 23:45 VBG Base Excess 29.3 mmol/L 10/01/19 23:45 Sodium 138.7 mmol/L (137-145) 10/06/19 05:56 Potassium 3.7 mmol/L (3.6-5.0) 10/06/19 05:56 Chloride 89 mmol/L (98-107) L 10/06/19 05:56 Carbon Dioxide 46 mmol/L (22-30) H* 10/06/19 05:56 Anion Gap 4 (5-19) L 10/06/19 05:56 BUN 39 mg/dL (7-20) H 10/06/19 05:56 Creatinine 0.96 mg/dL (0.52-1.25) 10/06/19 05:56 Est GFR ( Amer) > 60 (>60) 10/06/19 05:56 Est GFR (MDRD) Non-Af > 60 (>60) 10/06/19 05:56 Glucose 234 mg/dL (75-110) H 10/06/19 05:56 POC Glucose 310 mg/dL (70-110) H 10/06/19 12:03 Hemoglobin A1c % 9.8 % (4.7-6.0) H 10/03/19 05:39 Calcium 8.2 mg/dL (8.4-10.2) L 10/06/19 05:56 Magnesium 1.9 mg/dL (1.6-2.3) 10/05/19 05:58 Total Bilirubin 1.0 mg/dL (0.2-1.3) 10/01/19 22:05 Direct Bilirubin 0.3 mg/dL (0.0-0.4) 10/01/19 22:05 Neonat Total Bilirubin Not Reportable 10/01/19 22:05 Neonat Direct Bilirubin Not Reportable 10/01/19 22:05 Neonat Indirect Bili Not Reportable 10/01/19 22:05 AST 73 U/L (17-59) H 10/01/19 22:05 ALT 107 U/L (<50) H 10/01/19 22:05 Alkaline Phosphatase 125 U/L (38-126) 10/01/19 22:05 Creatine Kinase 131 U/L (55-170) 10/02/19 18:33 CK-MB (CK-2) 2.19 ng/mL (<4.55) 10/02/19 18:33 Troponin I 0.033 ng/mL 10/02/19 18:33 NT-Pro-B Natriuret Pep 833 pg/mL (<125) H 10/05/19 05:58 Total Protein 5.9 g/dL (6.3-8.2) L 10/01/19 22:05 Albumin 3.6 g/dL (3.5-5.0) 10/01/19 22:05 TSH 0.06 uIU/mL (0.47-4.68) L 10/02/19 05:30 COVID-19 Source NASOPHARYNGEAL 10/02/19 02:20 COVID-19 (SHARA) NOT DETECTED 10/02/19 02:20 10/01/19 10/01/19 10/02/19 22:05 22:05 09:58 CK-MB (CK-2) 1.71 Troponin I 0.043 0.044 NT-Pro-B Natriuret Pep 954 H 10/02/19 10/02/19 10/05/19 12:07 18:33 05:58 CK-MB (CK-2) 1.57 2.19 Troponin I 0.037 0.033 NT-Pro-B Natriuret Pep 833 H Impressions: Chest X-Ray 10/04/19 00:00 IMPRESSION: There appears to be a 3 cm mass in the left lower lung. Is possible that this represents a healing anterior rib fracture. Recommend CT. There is a small left pleural effusion. Borderline cardiomegaly without pulmonary edema. Chest CT 10/06/19 00:00 IMPRESSION: 1. 3 cm subpleural mass in the left upper lobe consistent with neoplasm. Associated AP window adenopathy with a single node measuring 3.7 cm. 2. Widespread hepatic metastasis. Plan Plan of Treatment: Patient was discharged home, in stable condition. He has requested to d/c prior to his CT Chest results being available; he is ad vised that he will receive a follow up phone call should the results indicate he needs to follow up with PCP and/or Pulmonology kole. Discharge planning has started the process to obtain home Trilogy device. He is advised to follow up with his PCP within 1 week and pulmonology at the earliest available appointment. He is encouraged to take his medications as prescribed. Stop smoking. Return to the emergency department as needed for concerning symptoms. Time Spent: Greater than 30 Minutes Stroke Is this a Stroke Patient?: No Acute Heart Failure - Is this a Heart Failure Patient?: No
== END 2019-10-06 15:44 | disposition home or self-care (01) | DRG 291 ==
LOC: ER 21:38 → EH 10-02 01:47 → 3W 10-02 03:12
PROVIDERS: ADMIT Emergency Medicine; ATTEND Registered Nurse
PROC: 5A09357 Assistance with Respiratory Ventilation, Less than 24 Consecutive Hours, Continuous Positive Airway Pressure (ICD-10-PCS; principal; 2019-10-04)
DX: I11.0 Hypertensive heart disease with heart failure (principal); J96.22 Acute and chronic respiratory failure with hypercapnia; J96.21 Acute and chronic respiratory failure with hypoxia; J44.1 Chronic obstructive pulmonary disease with (acute) exacerbation; L03.116 Cellulitis of left lower limb; Z99.81 Dependence on supplemental oxygen; I50.33 Acute on chronic diastolic (congestive) heart failure; R91.1 Solitary pulmonary nodule; E11.65 Type 2 diabetes mellitus with hyperglycemia; E87.6 Hypokalemia; E66.01 Morbid (severe) obesity due to excess calories; G47.30 Sleep apnea, unspecified; F10.20 Alcohol dependence, uncomplicated; F32.9 Major depressive disorder, single episode, unspecified; Z96.652 Presence of left artificial knee joint; K43.9 Ventral hernia without obstruction or gangrene; F17.200 Nicotine dependence, unspecified, uncomplicated; Z79.84 Long term (current) use of oral hypoglycemic drugs; Z79.52 Long term (current) use of systemic steroids; Z79.899 Other long term (current) drug therapy; Z79.02 Long term (current) use of antithrombotics/antiplatelets; Z11.59 Encounter for screening for other viral diseases; Z71.6 Tobacco abuse counseling; Z83.3 Family history of diabetes mellitus; Z80.9 Family history of malignant neoplasm, unspecified; Z82.49 Family history of ischemic heart disease and other diseases of the circulatory system; Z88.6 Allergy status to analgesic agent; Z88.0 Allergy status to penicillin; Z88.2 Allergy status to sulfonamides
CPT/HCPCS: 36415; 71045; 71260; 80048; 80053; 82550; 82553; 82803; 82962; 83036; 83735; 83880; 84443; 84484; 85025; 85027; 87040; 87635; 93005; 93010; 93306; 94640; 94660; 94667; 94799; 96365; 96366; 99285; C9803; J1815; J1940; J3475; J3480; J3490; J7512